=== PATIENT | female | born 1970 | race Caucasian/White ===

== ENCOUNTER 2016-09-29 16:44 | Inpatient (IN) | payer BC, OTHER ==
[~2016-09-29] VITALS: Ht 162.6 cm; Wt 97.6 kg
[~2016-09-29 16:44] MED LIST: ALBU6.7H INH; CELE200C PO; DAPA5TAB; GUAI100S6 PO; MEDR4PAK3 PO; METF-324 PO; MMW SSP; TRAZ50TA4 PO; ZITH250T PO
[2016-09-29 16:49] VITALS: BP 131/86; PULSE 99; RESP 16; TEMP 98.2; O2SAT 95
[2016-09-29] MEDS ORDERED: SODIUM CHLOR 0.9% 1000 ML INJ 1,000 ML IV SCH (17:05)
[2016-09-29] MEDS ORDERED: SODIUM CHLORIDE 0.9% FLUSH 5 ML FLUSH IVF PRN (17:15)
[2016-09-29] MEDS ORDERED: KETOROLAC TROMETHAMINE 30 MG/ML (IVP) VIAL IVP ONE (17:15)
[2016-09-29] MEDS ORDERED: ONDANSETRON HCL 4 MG/2 ML VIAL IVP ONE (17:15)
[2016-09-29] MEDS ORDERED: HYDR-3580 PO (17:18)
[2016-09-29] MEDS ORDERED: LISI-519 PO (17:18)
[2016-09-29] MEDS ORDERED: GING500C PO (17:18)
[2016-09-29] MEDS ORDERED: GLUC500C5 PO (17:18)
[2016-09-29] MEDS ORDERED: FLUT1INH INH (17:18)
[2016-09-29] MEDS ORDERED: DAPA1TAB3 PO (17:18)
[2016-09-29] MEDS ORDERED: CINN500C PO (17:18)
[2016-09-29] MEDS ORDERED: CYCL1TAB29 PO (17:18)
[2016-09-29] MEDS ORDERED: GNP3TAB PO (17:18)
[2016-09-29] MEDS ORDERED: TRAZ150T75 PO (17:18)
[2016-09-29] MEDS ORDERED: MOBI7.5T PO (17:18)
[2016-09-29] MEDS ORDERED: SYMB160A INH (17:18)
[2016-09-29] MEDS ORDERED: ALBU6.7H INH (17:18)
[2016-09-29] MEDS ORDERED: FISH500C PO (17:18)
[2016-09-29] MEDS ORDERED: CELE40TA PO (17:18)
[2016-09-29] MEDS ORDERED: METF1000 PO (17:18)
[2016-09-29] MEDS ORDERED: METO25TA3 PO (17:18)
[2016-09-29 17:29] VITALS: O2SAT 97
[2016-09-29 17:30] VITALS: BP 132/75; PULSE 83; RESP 18; O2SAT 97
--- NOTE | 2016-09-29 17:38 | PD ---
HPI Chief Complaint: GI Complaint Time Seen by Provider: 17:00 Travel History International Travel<30 days: No Contact w/Intl Traveler<30days: No Traveled to known affect area: No History of Present Illness HPI 46-year-old female with history of depression, anxiety, diabetes here with complaint of abdominal pain. Patient states that she has had approximately 2.5 days of upper abdominal pain greatest in the epigastrium and right upper quadrant that radiates around to the back. Associated nausea, vomiting. No hematemesis. Associated diarrhea. No hematochezia. The nausea and vomiting are certainly more prominent than her diarrhea. Patient states that she has a history of pancreatitis, status post cholecystectomy and this feels similar. She's had recurrent pancreatitis even after her cholecystectomy and states that it has been due to "using too much ibuprofen". She denies a history of heavy alcohol abuse. Patient has not had any new changes in home medications. Patient has tried Zofran at home with some improvement of her symptoms. PFSH Past Medical History Asthma: Yes Anxiety: Yes Depression: Yes Heart Rhythm Problems: No Cancer: No Cardiac Catheterization: No Cardiovascular Problems: Yes Diabetes: Yes Patient Takes Glucophage: Yes Diminished Hearing: No Gastrointestinal Disorders: Yes Genitourinary: No Hypertension: Yes Implanted Vascular Access Dvce: No Musculoskeletal: No Neurologic: No Psychiatric: Yes Reproductive: Yes (HYSTERECTOMY) Respiratory: Yes Immunizations Current: Yes Migraines: No Pancreatitis: Yes Thyroid Disease: No Influenza Vaccination: Yes ?: Not : 1 Para: 1 Past Surgical History Abdominal Surgery: Yes (ENDOMETRIAL TISSUE REMOVED 2002) Appendectomy: Yes Section: Yes (1998) Cholecystectomy: Yes Coronary Artery Bypass Graft: No Gynecologic Surgery: Yes (EXPLORATORY LAP 1990, EXPL LAP C CAUTERIZATION 1997 ) Hysterectomy: Yes Pacemaker: No Other Surgery: Yes (EXP LAP, EXP ABD SURGERY) Social History Alcohol Use: Yes (RARELY) Tobacco Use: No Substance Use: No Allergies-Medications (Allergen,Severity, Reaction): Coded Allergies: Morphine (Verified Allergy, Intermediate, HIVES, 09/29/16) Sulfa (Verified Allergy, Intermediate, HIVES, 09/29/16) Pyridium (Verified Adverse Reaction, Intermediate, VOMITING, 09/29/16) Reported Meds & Prescriptions Reported Meds & Active Scripts Active Reported Cinnamon 500 Mg Cap 1,000 Mg PO DAILY Gnp Melatonin (Melatonin) 3 Mg Tab 1 Tab PO DAILY Anabell (Anabell (Zingiber Officinalis)) 500 Mg Cap 1 Cap PO DAILY Glucosamine (Glucosamine Sulfate) 500 Mg Cap 500 Mg PO DAILY Fish Oil (Sheldon-3 Fatty Acids) 500 Mg Cap 1 Cap PO DAILY Mobic (Meloxicam) 7.5 Mg Tab 7.5 Mg PO DAILY Trazodone (Trazodone HCl) 150 Mg Tab 150 Mg PO HS Celexa (Citalopram Hydrobromide) 40 Mg Tab 60 Mg PO DAILY Farxiga (Dapagliflozin) 10 Mg Tab 10 Mg PO DAILY Metformin (Metformin HCl) 1,000 Mg Tab 1,000 Mg PO BIDPC With meals Flexeril (Cyclobenzaprine HCl) 10 Mg Tab 10 Mg PO TID Hydrocodone-Acetaminophen 7.5-325 mg Tab 1 Tab PO DAILY PRN Symbicort Inh (Budesonide/Formoterol Fumarate) 160-4.5 Mcg/Act Aero 1 Puff INH Q12HR Breo Ellipta Inh (Fluticasone/Vilanterol) 100-25 Mcg/Act Inh 1 Puff INH DAILY Use daily at the same time. Proventil Hfa 6.7 GM Inh (Albuterol Sulfate) 90 Mcg/Act Aer 1 Puff INH Q4H PRN Metoprolol Tartrate 25 Mg Tab 25 Mg PO BID Lisinopril 5 Mg Tab 5 Mg PO DAILY Review of Systems Except as stated in HPI: all other systems reviewed are Neg Physical Exam Narrative GENERAL: Well-appearing female in no acute distress SKIN: Warm and dry. HEAD: Normocephalic. EYES: No scleral icterus. No injection or drainage. ENT: Mucous membranes pink and moist. NECK: Supple CARDIOVASCULAR: Regular rate and rhythm. RESPIRATORY: No accessory muscle use. GASTROINTESTINAL: Abdomen soft, right upper quadrant and epigastric abdominal pain without rebound or guarding, no CVA tenderness. Obese. MUSCULOSKELETAL: Normal gait NEUROLOGICAL: Awake and alert. Normal speech. PSYCHIATRIC: Appropriate mood and affect; insight and judgment normal. Data Data Last Documented VS Vital Signs Date Time Temp Pulse Resp B/P Pulse Ox O2 Delivery O2 Flow Rate FiO2 09/29/16 17:30 83 18 132/75 97 Room Air 09/29/16 16:49 98.2 Orders Complete Blood Count With Diff (09/29/16 17:05) Comprehensive Metabolic Panel (09/29/16 17:05) Lipase (09/29/16 17:05) Iv Access Insert/Monitor (09/29/16 17:05) Ecg Monitoring (09/29/16 17:05) Oximetry (09/29/16 17:05) Ondansetron Inj (Zofran Inj) (09/29/16 17:15) Sodium Chlor 0.9% 1000 Ml Inj (Ns 1000 M (09/29/16 17:05) Sodium Chloride 0.9% Flush (Ns Flush) (09/29/16 17:15) Ketorolac Inj (Toradol Inj) (09/29/16 17:15) Labs Laboratory Tests Test 09/29/16 17:25 White Blood Count 8.5 TH/MM3 Red Blood Count 5.17 MIL/MM3 Hemoglobin 15.4 GM/DL Hematocrit 46.0 % Mean Corpuscular Volume 89.1 FL Mean Corpuscular Hemoglobin 29.8 PG Mean Corpuscular Hemoglobin 33.5 % Concent Red Cell Distribution Width 12.2 % Platelet Count 217 TH/MM3 Mean Platelet Volume 8.6 FL Neutrophils (%) (Auto) 58.4 % Lymphocytes (%) (Auto) 32.0 % Monocytes (%) (Auto) 6.8 % Eosinophils (%) (Auto) 2.3 % Basophils (%) (Auto) 0.5 % Neutrophils # (Auto) 5.0 TH/MM3 Lymphocytes # (Auto) 2.7 TH/MM3 Monocytes # (Auto) 0.6 TH/MM3 Eosinophils # (Auto) 0.2 TH/MM3 Basophils # (Auto) 0.0 TH/MM3 CBC Comment DIFF FINAL Differential Comment Sodium Level 139 MEQ/L Potassium Level 3.7 MEQ/L Chloride Level 102 MEQ/L Carbon Dioxide Level 27.5 MEQ/L Anion Gap 10 MEQ/L Blood Urea Nitrogen 13 MG/DL Creatinine 0.76 MG/DL Estimat Glomerular Filtration 83 ML/MIN Rate Random Glucose 188 MG/DL Calcium Level 8.7 MG/DL Total Bilirubin 0.2 MG/DL Aspartate Amino Transf 25 U/L (AST/SGOT) Alanine Aminotransferase 61 U/L (ALT/SGPT) Alkaline Phosphatase 77 U/L Total Protein 7.1 GM/DL Albumin 4.0 GM/DL Lipase 2389 U/L [facility] Medical Decision Making Medical Screen Exam Complete: Yes Emergency Medical Condition: Yes Medical Record Reviewed: Yes Differential Diagnosis 46-year-old female with history of pancreatitis, diabetes status post cholecystectomy here with right upper quadrant, epigastric abdominal pain with nausea vomiting and diarrhea for the last 2.5 days similar previous episodes of pancreatitis. Differential includes GERD, gastritis, pancreatitis, hepatobiliary pathology, gastroenteritis, and less likely bowel obstruction, pyelonephritis. Narrative Course Patient placed on monitor, IV established and blood obtained. Patient given 1 L normal saline bolus, 4 mg Zofran, 30 mg Toradol. CBC, CMP, lipase obtained and notable for lipase of 2389. Patient is still quite uncomfortable with nausea, vomiting. Blood alcohol level, liver panel added onto labs. Patient will be admitted for nothing by mouth, IV fluids. Diagnosis Primary Impression: Pancreatitis Qualified Code: K85.90 - Acute pancreatitis without infection or necrosis, unspecified pancreatitis type Additional Impression: Abdominal pain Qualified Code: R10.10 - Pain of upper abdomen Admitting Information Admitting Physician Requests: Admit Bela Clinton MD Sep 29, 2016 17:38
[2016-09-29 17:40] LABS: BASOPHIL % 0.5 % (0.0-2.0); EOSINOPHIL # 0.2 TH/MM3 (0-0.4); EOSINOPHIL % 2.3 % (0.0-4.0); HEMO FLAGS DIFF FINAL; LYMPHOCYTE # 2.7 TH/MM3 (1.0-4.8); MEAN CELL VOLUME 89.1 FL (80.0-100.0); MEAN CORPUSCULAR HEMOGLOBIN 29.8 PG (27.0-34.0); MEAN CORPUSCULAR HGB CONC 33.5 % (32.0-36.0); MONO % 6.8 % (0.0-8.0); NEUT % 58.4 % (16.0-70.0); PLATELET COUNT 217 TH/MM3 (150-450); RED BLOOD COUNT 5.17 MIL/MM3 (4.00-5.30); RED CELL DISTRIBUTION WIDTH 12.2 % (11.6-17.2); WHITE BLOOD COUNT 8.5 TH/MM3 (4.0-11.0)
[2016-09-29 17:51] LABS: CHLORIDE 102 MEQ/L (98-107); POTASSIUM 3.7 MEQ/L (3.5-5.1); SODIUM (NA) 139 MEQ/L (136-145)
[2016-09-29 17:55] LABS: ANION GAP 10 MEQ/L (5-15); BICARBONATE 27.5 MEQ/L (21.0-32.0); BLOOD UREA NITROGEN 13 MG/DL (7-18)
[2016-09-29 17:58] LABS: ALT (GPT) 61 U/L (10-53); AST (GOT) 25 U/L (15-37); GLOMERULAR FILTRATION RATE 83 ML/MIN (>89)
[2016-09-29 18:00] LABS: TOTAL BILIRUBIN ADULT 0.2 MG/DL (0.2-1.0)
[2016-09-29 18:01] LABS: ALKALINE PHOSPHATASE 77 U/L (45-117)
[2016-09-29] MEDS ORDERED: ACETAMINOPHEN/HYDROcodone 325 MG/5 MG TAB PO ONE (19:00)
[2016-09-29 19:19] LABS: HDL CHOLESTEROL 57.9 MG/DL (40.0-60.0)
[2016-09-29 19:30] VITALS: BP 118/68; PULSE 75; RESP 16; TEMP 99; O2SAT 97
--- NOTE | 2016-09-29 19:46 | HHI.HP ---
HPI Service [facility] Hospitalists Primary Care Physician Buck Patel M.D. Admission Diagnosis pancreatitis Chief Complaint: abd pain Travel History International Travel<30 Days: No Contact w/Intl Traveler <30 Da: No Traveled to Known Affected Are: No History of Present Illness 46-year-old female with history of depression, anxiety, diabetes and htn is here with complaint of abdominal pain. Patient states that she has had approximately 2.5 days of upper abdominal pain greatest in the epigastrium and right upper quadrant that radiates around to the back. +Associated nausea, no vomiting. No hematemesis. + Associated diarrhea. No hematochezia. Nausea is more of a feature than the diarrhea. Patient states that she has a history of pancreatitis, status post cholecystectomy and this feels similar to when she had pancreatitis exacerbation before. She's had recurrent pancreatitis even after her cholecystectomy and states that it has been due to "using too much ibuprofen". She denies a history of heavy alcohol abuse and actually doesn't drink any alcohol at all. Patient has not had any new changes in home medications, but has started eating more fatty foods of late. Patient has tried Zofran at home with some improvement of her symptoms. He is feeling much better now since being provided with IV antibiotics and pain medication. She has had approximately 3 episodes of pancreatitis in the past since 2013. Review of Systems Constitutional: COMPLAINS OF: Change in appetite Eyes: DENIES: Blurred vision, Diplopia, Eye inflammation, Eye pain, Vision loss , Photosensitivity, Double Vision Respiratory: DENIES: Apneas, Cough, Snoring, Wheezing, Hemoptysis, Sputum production, Shortness of breath Cardiovascular: DENIES: Chest pain, Palpitations, Syncope, Dyspnea on Exertion , PND, Lower Extremity Edema, Orthopnea, Claudication Gastrointestinal: COMPLAINS OF: Abdominal pain, Diarrhea, Nausea, DENIES: Black stools, Bloody stools, BRB per rectum, Constipation, GERD, Reflux, Vomiting, Difficulty Swallowing, Anorexia, See HPI Integumentary: COMPLAINS OF: Abnormal pigmentation, Rash Immunologic/allergic: DENIES: Eczema, Urticaria Neurologic: DENIES: Abnormal gait, Headache, Localized weakness, Paresthesias, Seizures, Speech Problems, Tremor, Poor Balance Past Family Social History Past Medical History Asthma Type 2 diabetes Hyperlipidemia Hypertension Gastritis Lumbar degenerative disc disease Obesity Anxiety Depression Past Surgical History Appendectomy section 1998 Laparoscopic cholecystectomy Exploratory laparotomy at age 20 Hysterectomy bilateral salpingo-oophorectomy in 2003 Reported Medications Cinnamon 500 Mg Cap 1,000 Mg PO DAILY Gnp Melatonin (Melatonin) 3 Mg Tab 1 Tab PO DAILY Anabell (Anabell (Zingiber Officinalis)) 500 Mg Cap 1 Cap PO DAILY Glucosamine (Glucosamine Sulfate) 500 Mg Cap 500 Mg PO DAILY Fish Oil (Rocky-3 Fatty Acids) 500 Mg Cap 1 Cap PO DAILY Mobic (Meloxicam) 7.5 Mg Tab 7.5 Mg PO DAILY Trazodone (Trazodone HCl) 150 Mg Tab 150 Mg PO HS Celexa (Citalopram Hydrobromide) 40 Mg Tab 60 Mg PO DAILY Farxiga (Dapagliflozin) 10 Mg Tab 10 Mg PO DAILY Metformin (Metformin HCl) 1,000 Mg Tab 1,000 Mg PO BIDPC With meals Flexeril (Cyclobenzaprine HCl) 10 Mg Tab 10 Mg PO TID Hydrocodone-Acetaminophen 7.5-325 mg Tab 1 Tab PO DAILY PRN Symbicort Inh (Budesonide/Formoterol Fumarate) 160-4.5 Mcg/Act Aero 1 Puff INH Q12HR Proventil Hfa 6.7 GM Inh (Albuterol Sulfate) 90 Mcg/Act Aer 1 Puff INH Q4H PRN Metoprolol Tartrate 25 Mg Tab 25 Mg PO BID Lisinopril 5 Mg Tab 5 Mg PO DAILY Singulair 10mg daily Incruse Elipta 62.5 mcg 1 puff daily Allergies: Coded Allergies: Morphine (Verified Allergy, Intermediate, HIVES, 09/29/16) Sulfa (Verified Allergy, Intermediate, HIVES, 09/29/16) Pyridium (Verified Adverse Reaction, Intermediate, VOMITING, 09/29/16) Family History Asthma and a mother and sister Abdominal aortic aneurysm in her father diabetes Coronary artery disease Hypertension Major depression Social History Denies alcohol, tobacco or illicit drug use 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 She has twin sons age 17. Originally from [place], she has been in the area for 9 years. Physical Exam Vital Signs Vital Signs Date Time Temp Pulse Resp B/P Pulse Ox O2 Delivery O2 Flow Rate FiO2 09/29/16 18:26 18 09/29/16 17:30 83 18 132/75 97 Room Air 09/29/16 17:29 97 Room Air 09/29/16 16:49 98.2 99 16 131/86 95 Physical Exam GENERAL: This is a well-nourished, obese, well-developed patient, in no apparent distress. Alert and oriented. SKIN: Mild erythematous patches on arms and upper chest.. Cool and dry. HEAD: Atraumatic. Normocephalic. No temporal or scalp tenderness. EYES: Pupils equal round and reactive. Extraocular motions intact. No scleral icterus. No injection or drainage. ENT: Nose without bleeding, purulent drainage or septal hematoma. Airway patent. NECK: Trachea midline. No JVD or lymphadenopathy. Supple, nontender, no meningeal signs. CARDIOVASCULAR: Regular rate and rhythm without murmurs, gallops, or rubs. RESPIRATORY: Clear to auscultation. Breath sounds equal bilaterally. No wheezes , rales, or rhonchi. GASTROINTESTINAL: Abdomen soft, nondistended. No hepato-splenomegaly, or palpable masses. No guarding. Mild tenderness to palpation in epigastrium. No rebound. Bowel sounds normal. MUSCULOSKELETAL: Extremities without clubbing, cyanosis, or edema. No joint tenderness, effusion, or edema noted. No calf tenderness. NEUROLOGICAL: Awake and alert. Cranial nerves II through XII intact. Motor and sensory grossly within normal limits. Five out of 5 muscle strength in all muscle groups. Normal speech. Laboratory Laboratory Tests Test 09/29/16 17:25 White Blood Count 8.5 Red Blood Count 5.17 Hemoglobin 15.4 Hematocrit 46.0 Mean Corpuscular Volume 89.1 Mean Corpuscular Hemoglobin 29.8 Mean Corpuscular Hemoglobin 33.5 Concent Red Cell Distribution Width 12.2 Platelet Count 217 Mean Platelet Volume 8.6 Neutrophils (%) (Auto) 58.4 Lymphocytes (%) (Auto) 32.0 Monocytes (%) (Auto) 6.8 Eosinophils (%) (Auto) 2.3 Basophils (%) (Auto) 0.5 Neutrophils # (Auto) 5.0 Lymphocytes # (Auto) 2.7 Monocytes # (Auto) 0.6 Eosinophils # (Auto) 0.2 Basophils # (Auto) 0.0 CBC Comment DIFF FINAL Differential Comment Sodium Level 139 Potassium Level 3.7 Chloride Level 102 Carbon Dioxide Level 27.5 Anion Gap 10 Blood Urea Nitrogen 13 Creatinine 0.76 Estimat Glomerular Filtration 83 Rate Random Glucose 188 Calcium Level 8.7 Total Bilirubin 0.2 Aspartate Amino Transf 25 (AST/SGOT) Alanine Aminotransferase 61 (ALT/SGPT) Alkaline Phosphatase 77 Total Protein 7.1 Albumin 4.0 Triglycerides Level 306 Cholesterol Level 226 LDL Cholesterol 107 HDL Cholesterol 57.9 Cholesterol/HDL Ratio 3.90 Lipase 2389 Ethyl Alcohol Level LESS THAN 3 Result Diagram: 09/29/16 1725 09/29/16 172 Assessment and Plan Problem List: (1) Pancreatitis Status: Acute Plan: seems to be recurrent issue. Will follow clinically. IVF, pain meds. NPO initially, we'll now advanced to clears as she seems clinically much improved. We'll check imaging if symptoms recur. She reports that she's had CT scanning done of her abdomen on several occasions including most recently around March 2016 per her report. (2) DM2 (diabetes mellitus, type 2) Status: Chronic Plan: A1c 7.3 in May 2016. Recheck. SSI. (3) Asthma Status: Chronic Plan: nebs. follow clinically. inhalers as at home. (4) Hypertension Status: Chronic Plan: Well controlled. continue rx (5) Major depression Status: Chronic Plan: continue rx Code Status Full Discussed Condition With Patient and ER physician Physician Certification 2 Midnight Certification Type: Admission for Inpatient Services Order for Inpatient Services The services are ordered in accordance with Medicare regulations or non- Medicare payer requirements, as applicable. In the case of services not specified as inpatient-only, they are appropriately provided as inpatient services in accordance with the 2-midnight benchmark. Estimated LOS (days): 2 days is the estimated time the patient will need to remain in the hospital, assuming treatment plan goals are met and no additional complications. Post-Hospital Plan: Home Problem Qualifiers (1) Pancreatitis: Qualified Code: K85.90 - Acute pancreatitis without infection or necrosis, unspecified pancreatitis type (2) Hypertension: Qualified Code: I10 - Essential hypertension (3) Major depression: Van Kirkpatrick PhD MD Sep 29, 2016 19:46
[2016-09-29] MEDS ORDERED: SODIUM CHLORIDE 0.9% FLUSH 5 ML FLUSH IV PRN (21:15)
[2016-09-29] MEDS: NS + KCL 20 MEQ INJ 1,000 ML IV SCH (21:57)
[2016-09-29 22:00] VITALS: BP 133/67; PULSE 77; RESP 18; TEMP 97.7; O2SAT 97
[2016-09-29] MEDS ORDERED: METOPROLOL TARTRATE 25 MG TAB PO SCH (22:30)
[2016-09-29] MEDS ORDERED: CITALOPRAM HYDROBROMIDE 20 MG TAB PO SCH (22:30)
[2016-09-29] MEDS ORDERED: traZODone HCL 100 MG TAB PO SCH (22:30)
[2016-09-29] MEDS ORDERED: PILL SPLITTER OTHER PRN (22:45)
[2016-09-29 23:20] VITALS: BP 117/59; PULSE 76; RESP 18; O2SAT 96
[2016-09-30] VITALS (9 sets, daily range): BP systolic 113–140; BP diastolic 52–87; PULSE 69–83; RESP 16–18; TEMP 96.9–98.2; O2SAT 96–99
[2016-09-30] MEDS: INSULIN ASPART SUPPLEMENTAL SCALE SQ SCH ×4 (06:34→21:00)
[2016-09-30 06:47] LABS: CHLORIDE 109 MEQ/L (98-107); POTASSIUM 4.5 MEQ/L (3.5-5.1); SODIUM (NA) 142 MEQ/L (136-145)
[2016-09-30 06:51] LABS: ANION GAP 7 MEQ/L (5-15); BICARBONATE 25.6 MEQ/L (21.0-32.0); BLOOD UREA NITROGEN 13 MG/DL (7-18)
[2016-09-30 06:58] LABS: ALKALINE PHOSPHATASE 51 U/L (45-117); ALT (GPT) 72 U/L (10-53); AST (GOT) 44 U/L (15-37); GLOMERULAR FILTRATION RATE 107 ML/MIN (>89); TOTAL BILIRUBIN ADULT 0.5 MG/DL (0.2-1.0)
--- NOTE | 2016-09-30 07:00 | HHI.PR ---
Subjective Remarks Patient felt relatively well overnight and started having pain again in the right upper quadrant and epigastric area about 1 hour ago. She prefers to avoid opiates if possible given a history of opiate addiction. She uses [place] at home very sparingly and has a pain contract with her outside primary care physician. No nausea or vomiting overnight. She has never had an MRCP and this is her fourth episode of pancreatitis in the last 3-1/2 years. Objective Vitals Vital Signs Date Time Temp Pulse Resp B/P Pulse Ox O2 Delivery O2 Flow Rate FiO2 09/30/16 03:30 98.0 76 18 113/52 97 Room Air 09/30/16 01:50 96 21 09/29/16 23:20 76 18 117/59 96 Room Air 09/29/16 22:00 97.7 77 18 133/67 97 Room Air 09/29/16 19:30 99.0 75 16 118/68 97 Room Air 09/29/16 19:30 16 09/29/16 18:26 18 09/29/16 17:30 83 18 132/75 97 Room Air 09/29/16 17:29 97 Room Air 09/29/16 16:49 98.2 99 16 131/86 95 09/29/16 09/29/16 09/30/16 15:00 23:00 07:00 Intake Total 250 ml Balance 250 ml Intake Oral 250 ml # Voids 1 GENERAL: Standing by the side of the bed in mild distress regarding right upper quadrant pain. Alert and oriented. Cooperative with exam. SKIN: Warm and dry. Minimal erythematous patches on lateral arms, improved from previous exam. HEAD: Normocephalic. EYES: No scleral icterus. No injection or drainage. NECK: Supple, trachea midline. No JVD or lymphadenopathy. CARDIOVASCULAR: Regular rate and rhythm without murmurs, gallops, or rubs. RESPIRATORY: Breath sounds equal bilaterally. No accessory muscle use. GASTROINTESTINAL: Abdomen soft, nondistended. Moderate tenderness in right upper quadrant with voluntary guarding. No rebound. Bowel sounds normal. MUSCULOSKELETAL: No cyanosis, or edema. BACK: Nontender without obvious deformity. No CVA tenderness. Result Diagram: 09/29/16 1725 09/30/16 0630 Urinary Catheter: No Vascular Central Line Catheter: No A/P Problem List: (1) Pancreatitis Status: Acute Plan: seems to be recurrent issue. Will follow clinically. IVF, pain meds. Recurrence of pain this morning. We'll check MRCP and have GI see the patient since the recurrent issue. Patient prefers not opiate medications for pain management if possible. (2) DM2 (diabetes mellitus, type 2) Status: Chronic Plan: A1c 7.3 in May 2016. Recheck. SSI. (3) Asthma Status: Chronic Plan: nebs. follow clinically. inhalers as at home. (4) Hypertension Status: Chronic Plan: Well controlled. continue rx (5) Major depression Status: Chronic Plan: continue rx Discharge Planning Hopefully discharge in next 1-2 days. Problem Qualifiers (1) Pancreatitis: Qualified Code: K85.90 - Acute pancreatitis without infection or necrosis, unspecified pancreatitis type (2) Hypertension: Qualified Code: I10 - Essential hypertension (3) Major depression: Van Kirkpatrick PhD Sep 30, 2016 07:00
[2016-09-30 07:32] LABS: BETA HCG QUANT 3 MIU/ML (0-5)
[2016-09-30] MEDS: KETOROLAC TROMETHAMINE 30 MG/ML (IVP) VIAL IV PUSH PRN (07:44)
[2016-09-30] MEDS: ONDANSETRON HCL 4 MG/2 ML VIAL IV PRN (07:44)
[2016-09-30] MEDS: NS + KCL 20 MEQ INJ 1,000 ML IV SCH (07:44)
[2016-09-30] MEDS ORDERED: MELATONIN 5 MG TAB PO SCH (09:00)
[2016-09-30] MEDS: SODIUM CHLORIDE 0.9% FLUSH 5 ML FLUSH IV SCH ×2 (09:00→20:05)
[2016-09-30] MEDS ORDERED: CITALOPRAM HYDROBROMIDE 40 MG TAB PO SCH (09:00)
[2016-09-30] MEDS: METOPROLOL TARTRATE 25 MG TAB PO SCH ×2 (09:02→21:13)
[2016-09-30] MEDS: BUDESONIDE-FORMOTEROL 160/4.5 MCG INHALER INH SCH ×2 (09:05→21:13)
[2016-09-30] MEDS: ACETAMINOPHEN/HYDROcodone 325 MG/5 MG TAB PO PRN ×2 (09:29→17:07)
[2016-09-30] MEDS ORDERED: VYVA30CA5 PO (09:33)
[2016-09-30] MEDS ORDERED: RESP: ALBUTEROL 2.5 MG/IPRATROPIUM 0.5 MG NEB (PRN) NEB (10:00)
[2016-09-30] MEDS ORDERED: LISDEXAMFETAMINE DIMESYLATE 30 MG CAP PO SCH (11:00)
[2016-09-30 11:30] LABS: HEMOGLOBIN A1a 1.1 %; HEMOGLOBIN A1b 1.2 %; HEMOGLOBIN Ao 82.5 %; HEMOGLOBIN F 1.8 %; HEMOGLOBIN LA1C 2.3 %; HEMOGLOBIN P3 3.9 %
[2016-09-30] MEDS: CYCLOBENZAPRINE HCL 10 MG TAB PO SCH ×2 (12:25→17:06)
--- NOTE | 2016-09-30 16:26 | RADHPO ---
EXAM DATE/TIME: 09/30/2016 14:40 [facility] COMPARISON: No previous studies available for comparison. INDICATIONS : Abdominal pain. MEDICAL HISTORY : Hypertension. Diabetes mellitus type 2. SURGICAL HISTORY : Cholecystectomy. Hysterectomy. ENCOUNTER: Initial ACUITY: 2 day PAIN SCORE: 4/10 LOCATION: upper quadrant Abdomen TECHNIQUE: Multiplanar, multisequence magnetic resonance imaging of the abdomen was performed. High-resolution 3D dataset was utilized to reconstruct maximum-intensity projection (MIP) images. FINDINGS: INTRAHEPATIC BILE DUCTS: Within normal limits. No significant anatomical variant is present. EXTRAHEPATIC BILE DUCTS: The common bile duct measures 4 mm. No stone or filling defect is identified. GALLBLADDER: No stones, wall thickening, or pericholecystic fluid. LIVER: Normal size and signal intensity. No concerning liver lesion is identified on this non-contrast exam. PANCREAS: The main pancreatic duct is normal in size. There is no significant anatomical variant. Signal inte nsity is within normal limits. No mass is visualized on this non-contrast exam. OTHER: The remaining visualized structures demonstrate no acute abnormality on this non-contrast exam. There is loss of signal on axial opposed phase imaging. CONCLUSION: 1. Unremarkable MRCP. 2. No intra-or extrahepatic biliary ductal dilatation. 3. Mild fatty infiltration of the liver. Gary Bonilla MD on September 30, 2016 at 16:21 Board Certified Radiologist. This report was verified electronically.
[2016-09-30] MEDS: MELATONIN 5 MG TAB PO SCH (21:13)
[2016-09-30] MEDS: traZODone HCL 50 MG TAB PO SCH (21:13)
[2016-09-30] MEDS: CITALOPRAM HYDROBROMIDE 40 MG TAB PO SCH (21:14)
--- NOTE | 2016-10-01 05:54 | HHI.PR ---
Subjective Remarks Feeling somewhat better today. Slept well last night. Less nausea and less pain. Wants to try advancing diet. Objective Vitals Vital Signs Date Time Temp Pulse Resp B/P Pulse Ox O2 Delivery O2 Flow Rate FiO2 09/30/16 20:45 97 21 09/30/16 20:00 96.9 69 18 128/84 96 09/30/16 16:42 96 21 09/30/16 16:00 98.1 70 18 121/85 99 09/30/16 12:00 98.2 69 18 132/81 96 09/30/16 08:50 97.9 83 18 140/87 96 09/30/16 07:15 75 16 119/76 97 Room Air 09/30/16 09/30/16 10/01/16 15:00 23:00 07:00 Intake Total 1000 ml 800 ml Balance 1000 ml 800 ml Intake Oral 0 ml IV Total 1000 ml 800 ml # Voids 2 GENERAL: Sleeping but arouses to voice. Appears comfortable in no apparent distress. Alert and oriented. Cooperative with exam. SKIN: Warm and dry. Minimal erythematous patches on lateral arms which is stable with previous exam.. HEAD: Normocephalic. EYES: No scleral icterus. No injection or drainage. NECK: Supple, trachea midline. No JVD or lymphadenopathy. CARDIOVASCULAR: Regular rate and rhythm without murmurs, gallops, or rubs. RESPIRATORY: Breath sounds equal bilaterally. No accessory muscle use. GASTROINTESTINAL: Abdomen soft, nondistended. Mild tenderness in right upper quadrant. No guarding. No rebound. Bowel sounds normal. MUSCULOSKELETAL: No cyanosis, or edema. BACK: Nontender without obvious deformity. No CVA tenderness. Result Diagram: 09/29/16 1725 09/30/16 0630 Urinary Catheter: No Vascular Central Line Catheter: No A/P Problem List: (1) Pancreatitis Status: Acute Plan: seems to be recurrent issue. Will follow clinically. IVF, pain meds. MRCP negative. GI is on the case. Multiple labs pending. Medically improved. We'll advance diet. If she tolerates bland diet, plan discharge home later today. (2) DM2 (diabetes mellitus, type 2) Status: Chronic Plan: A1c 7.3 in May 2016, now 6.7. SSI and hospital. Resume outpatient meds after discharge. (3) Asthma Status: Chronic Plan: nebs. follow clinically. inhalers as at home. (4) Hypertension Status: Chronic Plan: Well controlled. continue rx (5) Major depression Status: Chronic Plan: continue rx Discharge Planning Hopefully discharge later today depending on her capacity to tolerate advanced diet. Problem Qualifiers (1) Pancreatitis: Qualified Code: K85.90 - Acute pancreatitis without infection or necrosis, unspecified pancreatitis type (2) Hypertension: Qualified Code: I10 - Essential hypertension (3) Major depression: Van Kirkpatrick PhD MD Oct 01, 2016 05:54
[2016-10-01] MEDS ORDERED: MOBI7.5T PO (05:59)
[2016-10-01] MEDS ORDERED: METF1000 PO (05:59)
[2016-10-01] MEDS ORDERED: PANT40TA3 PO (06:00)
--- NOTE | 2016-10-01 06:02 | HHI.DS ---
Discharge Summary Admission Date Sep 29, 2016 at 18:18 Discharge Date: Oct 03, 2016 Admitting Diagnosis pancreatitis (1) Pancreatitis Diagnosis: Principal (2) DM2 (diabetes mellitus, type 2) Diagnosis: Secondary (3) Asthma Diagnosis: Secondary (4) Hypertension Diagnosis: Secondary (5) Major depression Diagnosis: Secondary [facility], Dr. MCQUEEN Brief History 46-year-old female with history of depression, anxiety, diabetes and htn is here with complaint of abdominal pain. Patient states that she has had approximately 2.5 days of upper abdominal pain greatest in the epigastrium and right upper quadrant that radiates around to the back. +Associated nausea, no vomiting. No hematemesis. + Associated diarrhea. No hematochezia. Nausea is more of a feature than the diarrhea. Patient states that she has a history of pancreatitis, status post cholecystectomy and this feels similar to when she had pancreatitis exacerbation before. She's had recurrent pancreatitis even after her cholecystectomy and states that it has been due to "using too much ibuprofen". She denies a history of heavy alcohol abuse and actually doesn't drink any alcohol at all. Patient has not had any new changes in home medications, but has started eating more fatty foods of late. Patient has tried Zofran at home with some improvement of her symptoms. He is feeling much better now since being provided with IV antibiotics and pain medication. She has had approximately 3 episodes of pancreatitis in the past since 2012. CBC/BMP: 09/29/16 1725 09/30/16 0630 Significant Findings Laboratory Tests Test 09/29/16 09/30/16 17:25 06:30 Hemoglobin 15.4 GM/DL (11.6-15.3) Estimat Glomerular Filtration 83 ML/MIN (>89) Rate Random Glucose 188 MG/DL 156 MG/DL (74-106) (74-106) Alanine Aminotransferase 61 U/L (10-53) 72 U/L (10-53) (ALT/SGPT) Triglycerides Level 306 MG/DL (42-150) Cholesterol Level 226 MG/DL (120-200) LDL Cholesterol 107 MG/DL (0-99) Lipase 2389 U/L 1424 U/L (73-393) (73-393) Hemoglobin A1c 6.7 % (4.3-6.0) Chloride Level 109 MEQ/L (98-107) Calcium Level 8.1 MG/DL (8.5-10.1) Aspartate Amino Transf 44 U/L (15-37) (AST/SGOT) Total Protein 5.9 GM/DL (6.4-8.2) Albumin 3.3 GM/DL (3.4-5.0) Hospital Course Patient presented with epigastric and right upper quadrant pain. Her lipase was elevated and she was determined to have pancreatitis which is a recurrent problem for her. She was given IV fluids and pain medications. She improved somewhat but had a recurrence of her pain on hospital day #2. She was evaluated by gastroenterology. MRCP was negative. Multiple labs were ordered in attempts to determine the etiology of her recurrent pancreatitis. Many of those labs are still pending at time of d/c. Pt had recurrence of abd pain after eating. Pancreatic enzymes were added due to chronicity and recurrence of pancreatitis. CT and HIDA negative on day of d/c. Patient clinically improved and tolerated oral intake after addition of pancreatic enzymes. Pt Condition on Discharge: Stable Discharge Disposition: Discharge Home Discharge Instructions DIET: Follow Instructions for: Diabetic Diet (low fat, bland initially), Gluten Free Diet Speech Therapy-Diet Recommends: Regular Activities you can perform: Regular-No Restrictions Follow up Referrals: Gastroenterology PCP Follow-up New Orders: COMP MET PROF (CMP) - 2-3 Days LIPASE - 2-3 Days New Medications: Hydrocodone-Acetaminophen (Hydrocodone-Acetaminophen) 5-325 mg Tab 1 TAB PO Q8HR PRN breakthrough pain #15 Ref 0 TAB Pantoprazole (Pantoprazole) 40 Mg Tab 40 MG PO DAILY Reflux #30 Ref 0 TAB Dicyclomine (Bentyl) 10 Mg Cap 10 MG PO TID PRN SPASM #30 CAP Pancrelipase (Creon) 24,000-76,000-120,000 Units Cap 2 CAP PO TID pancreatitis #180 CAP Continued Medications: Albuterol 6.7 GM Inh (Proventil Hfa 6.7 GM Inh) 90 Mcg/Act Aer 1 PUFF INH Q4H PRN SHORTNESS OF BREATH #1 Ref 0 INHALER Budesonide-Formoterol Inh (Symbicort Inh) 160-4.5 Mcg/Act Aero 1 PUFF INH Q12HR #1 Ref 0 INHALER Cinnamon (Cinnamon) 500 Mg Cap 1000 MG PO DAILY #1 BOTTLE Citalopram (Celexa) 40 Mg Tab 60 MG PO DAILY Control Depression #30 Ref 0 TAB Cyclobenzaprine (Flexeril) 10 Mg Tab 10 MG PO TID Muscle Spasm #90 Ref 0 TAB Dapagliflozin (Farxiga) 10 Mg Tab 10 MG PO DAILY Blood Sugar Management #30 Ref 0 TAB Fluticasone-Vilanterol Inh (Breo Ellipta Inh) 100-25 Mcg/Act Inh 1 PUFF INH DAILY Use daily at the same time. #1 Ref 0 INHALER Anabell (Zingiber Officinalis) (Anabell) 500 Mg Cap 1 CAP PO DAILY Glucosamine (Glucosamine) 500 Mg Cap 500 MG PO DAILY Herbal Supplements Ref 0 CAP Hydrocodone-Acetaminophen (Hydrocodone-Acetaminophen) 7.5-325 mg Tab 1 TAB PO DAILY PRN PAIN Ref 0 TAB Lisdexamfetamine (Vyvanse) 30 Mg Cap 30 MG PO DAILY #30 Ref 0 CAP Lisinopril (Lisinopril) 5 Mg Tab 5 MG PO DAILY Blood Pressure Management #30 Ref 0 TAB Melatonin (Gnp Melatonin) 3 Mg Tab 1 TAB PO DAILY Meloxicam (Mobic) 7.5 Mg Tab 7.5 MG PO DAILY Pain #31 Ref 0 TAB (This prescription has been renewed) Metformin (Metformin) 1,000 Mg Tab 1000 MG PO BIDPC With meals Blood Sugar Management #60 Ref 0 TAB (This prescription has been renewed) Metoprolol Tartrate (Metoprolol Tartrate) 25 Mg Tab 25 MG PO BID #60 Ref 0 TAB Raymond-3 Fatty Acids (Fish Oil) 500 Mg Cap 1 CAP PO DAILY Trazodone (Trazodone) 150 Mg Tab 150 MG PO HS Control Depression #30 Ref 0 TAB Van Kirkpatrick PhD Oct 01, 2016 06:02
[2016-10-01] MEDS: INSULIN ASPART SUPPLEMENTAL SCALE SQ SCH ×4 (06:05→21:00)
[2016-10-01] MEDS: ACETAMINOPHEN/HYDROcodone 325 MG/5 MG TAB PO PRN ×3 (06:21→21:28)
[2016-10-01] MEDS: ONDANSETRON HCL 4 MG/2 ML VIAL IV PRN ×2 (06:22→12:38)
[2016-10-01 06:40] LABS: CHLORIDE 109 MEQ/L (98-107); POTASSIUM 4.1 MEQ/L (3.5-5.1); SODIUM (NA) 144 MEQ/L (136-145)
[2016-10-01 06:45] LABS: ANION GAP 8 MEQ/L (5-15); BICARBONATE 27.1 MEQ/L (21.0-32.0); BLOOD UREA NITROGEN 8 MG/DL (7-18)
[2016-10-01 06:48] LABS: ALT (GPT) 78 U/L (10-53); AST (GOT) 40 U/L (15-37); GLOMERULAR FILTRATION RATE 120 ML/MIN (>89)
[2016-10-01 06:50] LABS: TOTAL BILIRUBIN ADULT 0.4 MG/DL (0.2-1.0)
[2016-10-01 06:51] LABS: ALKALINE PHOSPHATASE 46 U/L (45-117)
[2016-10-01 08:00] VITALS: BP 142/85; PULSE 77; RESP 18; TEMP 98.8; O2SAT 96
[2016-10-01] MEDS: METOPROLOL TARTRATE 25 MG TAB PO SCH ×2 (08:48→21:25)
[2016-10-01] MEDS: BUDESONIDE-FORMOTEROL 160/4.5 MCG INHALER INH SCH ×2 (08:49→21:25)
[2016-10-01] MEDS: CYCLOBENZAPRINE HCL 10 MG TAB PO SCH ×3 (08:49→17:23)
--- NOTE | 2016-10-01 08:50 | MB ---
cc: XOCHITL MCQUEEN M.D. DATE OF CONSULTATION 09/30/[address] Kirkpatrick REASON FOR CONSULTATION Recurrent pancreatitis. HISTORY OF PRESENT ILLNESS Ms. Desai is a very pleasant 46-year-old lady admitted to the hospital with recurrent pancreatitis. The patient had abdominal pain, diarrhea, nausea but no vomiting. The pain was in epigastrium radiating to the back. The patient had similar episodes in the past. First one was in 2013- had one recurrence afterwards. She had similar episode. She had her gallbladder removed in 2013. She denies any alcohol intake or any new medications. She stated she does use paleo diet /low fat but recently she had some butter and chicken skin that may have contained more fat than normal. She was evaluated in the past by Dr. Sheldon for what appeared to be elevated liver enzymes. She was found to have elevation of the smooth muscle antibody, was recommended a liver biopsy but that was never done. During her cholecystectomy, no liver biopsy was performed. She is also currently seen by Dr. Quintero for skin rash and joint pains also dating back in 2012. She stated all the testing was negative so far. She was also seen by dermatology for the skin rash - the idea of possible skin biopsy was entertained but not done yet. She is trying to lose weight and she tried a new supplement that she started to a few weeks ago _glucomannan. PAST MEDICAL HISTORY 1. Asthma 2. Obesity 3. Type 2 diabetes, 4. Hyperlipidemia, 5. Hypertension. 6. Gastritis 7. Lumbar degenerative disease 8. Anxiety depression. PAST SURGICAL HISTORY 1. , 2. Appendectomy, 3. Cholecystectomy, 4. Exploratory laparotomy at age 20, 5. Hysterectomy. MEDICATIONS 1. Cinnamon 2. Melatonin 3. Anabell 4. Glucosamine 5. Fish oil 6. Mobic. 7. Trazodone 8. Celexa 9. Farxiga 10. Metformin. 11. Flexeril. 12. Hydrocodone. 13. Symbicort. 14. Proventil. 15. Metoprolol 16. Lisinopril 17. Singulair 18. Alimta ALLERGIES MORPHINE SULFA PYRIDIUM f FAMILY HISTORY Asthma, diabetes, coronary artery disease, hypertension. SOCIAL HISTORY Denies any smoking, drinking or drug use. 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 REVIEW OF SYSTEMS She denies any fever or chills, weight loss or weight gain. ENT: No alteration in baseline hearing or visual acuity PULMONARY: Denies any chest pain, shortness of breath. GASTROINTESTINAL: As above. GENITOURINARY:: Denies dysuria, hematuria. HEMATOLOGIC: No history of anemia or bleeding disorder. SKIN: No alteration in baseline skin lesion. NEUROLOGIC: No history of TIA or CVA kind of symptoms. PHYSICAL EXAMINATION GENERAL: On clinical exam, she is sitting comfortably in bed in no acute distress. VITAL SIGNS: Temperature is 98.1, pulse 70, respiration 18, blood pressure 121/85, pulse ox 99. HEENT: Pupils equal, round, reactive to light and accommodation. NECK: No JVD. No lymphadenopathy. CHEST: Clear to the auscultation and palpation. CARDIOVASCULAR: S1, S2. No murmur. ABDOMEN: Soft, obese. Bowel sounds are present. CHIEF LIBRARIAN CIRCULATION DEPARTMENT: Awake, alert, oriented x3. No focal signs identified. SKIN: She has a rash on her chest, arms. She does have a cushingoid appearance. White count is 8.5, hemoglobin 15.4, platelets 217. PT/INR normal. Her AST is 45, ALT 72, total protein 5.9, 3.3, triglycerides 306, cholesterol 226. Her lipase was 389, currently 1424. The patient had an MRCP which was suggestive of fatty liver otherwise negative. IMAGING STUDIES CT abdomen and pelvis was suggestive of normal CT, no etiology for the patient's clinical symptoms found, some significant fecal material throughout the colon. IMPRESSION Recurrent pancreatitis, unclear etiology. Does suspect medication-induced versus biliary sludge, less likely autoimmune process but needs to be excluded. History of peptic ulcer disease secondary to NSAIDS. Elevation of the liver enzymes most likely fatty liver. History of elevation of the smooth muscle antibody. RECOMMENDATIONS Advance diet as tolerated. EGD with endoscopic ultrasound as an outpatient. We are going to send also hepatitis profile, antimitochondrial antibody, celiac panel, iron ferritin , ceruloplasmin, alpha one antitrypsin, food allergies, liver fibrosis, IgG 4:smooth muscle antibody and KATALINA were sent. Weight loss. Avoid fatty foods. If discharged, followup in the office for further evaluation and treatment. I would like to thank Dr. Kirkpatrick for referring her to our office for consultation. Further recommendation will depend on the patient's clinical status and the above results. MD TEMO Ritter/ /6:17 PM /8:34 AM [facility] CENTERAnisha
[2016-10-01] MEDS: SODIUM CHLORIDE 0.9% FLUSH 5 ML FLUSH IV SCH ×2 (08:51→21:29)
[2016-10-01] MEDS: LISDEXAMFETAMINE 50 MG PO SCH (09:52)
[2016-10-01 10:02] LABS: FERRITIN 94 NG/ML (8-252); TRANSFERRIN IRON PROFILE 252 MG/DL (200-360)
[2016-10-01 11:10] LABS: IMMUNOGLOBULIN G 621 MG/DL (670-1640)
[2016-10-01 12:00] VITALS: BP 157/95; PULSE 77; RESP 18; TEMP 97.4; O2SAT 97
[2016-10-01] MEDS: KETOROLAC TROMETHAMINE 30 MG/ML (IVP) VIAL IV PUSH PRN (13:40)
[2016-10-01 16:00] VITALS: BP 144/88; PULSE 78; RESP 18; TEMP 97.7; O2SAT 97
[2016-10-01 20:00] VITALS: BP 129/85; PULSE 71; RESP 20; TEMP 98.2; O2SAT 95
[2016-10-01] MEDS: traZODone HCL 50 MG TAB PO SCH (21:25)
[2016-10-01] MEDS: MELATONIN 5 MG TAB PO SCH (21:26)
[2016-10-01] MEDS: CITALOPRAM HYDROBROMIDE 40 MG TAB PO SCH (21:26)
[2016-10-02] MEDS: INSULIN ASPART SUPPLEMENTAL SCALE SQ SCH ×4 (06:11→21:00)
[2016-10-02 06:54] LABS: CHLORIDE 105 MEQ/L (98-107); POTASSIUM 3.7 MEQ/L (3.5-5.1); SODIUM (NA) 145 MEQ/L (136-145)
[2016-10-02 07:03] LABS: ANION GAP 10 MEQ/L (5-15); BICARBONATE 30.1 MEQ/L (21.0-32.0); BLOOD UREA NITROGEN 6 MG/DL (7-18)
[2016-10-02 07:05] LABS: ALT (GPT) 134 U/L (10-53); AST (GOT) 70 U/L (15-37); GLOMERULAR FILTRATION RATE 111 ML/MIN (>89)
[2016-10-02 07:07] LABS: TOTAL BILIRUBIN ADULT 0.4 MG/DL (0.2-1.0)
[2016-10-02 07:08] LABS: ALKALINE PHOSPHATASE 71 U/L (45-117)
[2016-10-02] MEDS: LISDEXAMFETAMINE 50 MG PO SCH (07:44)
[2016-10-02] MEDS: METOPROLOL TARTRATE 25 MG TAB PO SCH ×2 (07:45→21:00)
[2016-10-02] MEDS: BUDESONIDE-FORMOTEROL 160/4.5 MCG INHALER INH SCH ×2 (07:45→21:00)
[2016-10-02] MEDS: CYCLOBENZAPRINE HCL 10 MG TAB PO SCH ×3 (07:45→17:51)
--- NOTE | 2016-10-02 07:46 | HHI.PR ---
Subjective Remarks Feeling much better today. Had recurrence of pain yesterday when she ate the advanced diet. Slept well overnight. No nausea. Objective Vitals Vital Signs Date Time Temp Pulse Resp B/P Pulse Ox O2 Delivery O2 Flow Rate FiO2 10/01/16 22:43 18 10/01/16 20:00 98.2 71 20 129/85 95 10/01/16 16:00 97.7 78 18 144/88 97 10/01/16 12:00 97.4 77 18 157/95 97 10/01/16 08:00 98.8 77 18 142/85 96 10/01/16 10/01/16 10/02/16 15:00 23:00 07:00 Intake Total 1440 ml 480 ml Balance 1440 ml 480 ml Intake Oral 1440 ml 480 ml # Voids 6 3 # Bowel Movements 0 0 GENERAL: Appears comfortable in no apparent distress. Alert and oriented. Cooperative with exam. SKIN: Warm and dry. HEAD: Normocephalic. EYES: No scleral icterus. No injection or drainage. NECK: Supple, trachea midline. No JVD or lymphadenopathy. CARDIOVASCULAR: Regular rate and rhythm without murmurs, gallops, or rubs. RESPIRATORY: Breath sounds equal bilaterally. No accessory muscle use. GASTROINTESTINAL: Abdomen soft, nondistended. No tenderness to palpation on today's exam. No guarding. No rebound. Bowel sounds normal. MUSCULOSKELETAL: No cyanosis, or edema. BACK: Nontender without obvious deformity. No CVA tenderness. Result Diagram: 09/29/16 1725 10/02/16 0530 Urinary Catheter: No Vascular Central Line Catheter: No A/P Problem List: (1) Pancreatitis Status: Acute Plan: seems to be recurrent issue. Clinically much improved this morning but transaminases and lipase are elevated again. MRCP negative. GI is on the case. Multiple labs pending guarding possible etiology of her recurrent pancreatitis. We'll try diet again this morning. If she tolerates well hopefully discharge home later today with close outpatient follow-up. (2) DM2 (diabetes mellitus, type 2) Status: Chronic Plan: A1c 7.3 in May 2016, now 6.7. SSI in hospital. Resume outpatient meds after discharge. (3) Asthma Status: Chronic Plan: nebs. follow clinically. inhalers as at home. (4) Hypertension Status: Chronic Plan: Well controlled. continue rx (5) Major depression Status: Chronic Plan: continue rx Discharge Planning Hopefully discharge later today depending on her capacity to tolerate advanced diet. Will need close follow-up as outpatient with labs and primary care. Problem Qualifiers (1) Pancreatitis: Qualified Code: K85.90 - Acute pancreatitis without infection or necrosis, unspecified pancreatitis type (2) Hypertension: Qualified Code: I10 - Essential hypertension (3) Major depression: Van Kirkpatrick PhD Oct 02, 2016 07:46
[2016-10-02] MEDS ORDERED: HYDR-3516 PO (07:48)
[2016-10-02 08:00] VITALS: BP 121/80; PULSE 80; RESP 18; TEMP 98.2; O2SAT 95
[2016-10-02 12:00] VITALS: BP 131/82; PULSE 66; RESP 18; TEMP 97.5; O2SAT 97
[2016-10-02] MEDS: ACETAMINOPHEN/HYDROcodone 325 MG/5 MG TAB PO PRN ×2 (12:57→20:18)
[2016-10-02] MEDS: SODIUM CHLORIDE 0.9% FLUSH 5 ML FLUSH IV SCH ×2 (12:58→21:00)
[2016-10-02] MEDS ORDERED: SIMETHICONE 80 MG CHEWABLE TAB PO PRN (15:00)
[2016-10-02] MEDS ORDERED: DICYCLOMINE HCL 10 MG CAP PO PRN (15:00)
--- NOTE | 2016-10-02 17:22 | HHI.GIFU ---
GI Follow-up Note Consult Follow-up Subjective: Patient laying in bed comfortably, today had multiple loose stools , some fat seen in toilet bowl, abdominal pain, crampy like after eating .No nausea, vomiting , tolerated diet relatively well.Lipase went up slightly .she states she gets episodes like this at home on/off Objective: PHYSICAL EXAMINATION: Vitals signs stable No fever Vital Signs Date Time Temp Pulse Resp B/P Pulse Ox O2 Delivery O2 Flow Rate FiO2 10/02/16 13:57 20 10/02/16 12:00 97.5 66 18 131/82 97 HEENT: Pupils round and reactive to light; normocephalic; atraumatic; no jaundice. Throat is clear. NECK: Neck is supple, no JVD, no lymphadenopathy. CHEST: Chest is clear to auscultation and percussion. CARDIAC: Regular rate and rhythm with no murmur gallop or rubs. ABDOMEN: Soft, nondistended, nontender; no hepatosplenomegaly; bowel sounds are present in all four quadrants,obese EXTREMITIES: No clubbing, cyanosis, or edema. SKIN: Normal; rash; no jaundice. RATE REVIEWER: No focal deficits; alert and oriented times three. Available Data (labs, X- Rays, Procedues) : Laboratory Tests Test 09/30/16 10/01/16 10/02/16 19:30 05:40 05:30 Iron Level 76 MCG/DL Total Iron Binding Capacity 353 MCG/DL Percent Iron Saturation 21.5 % Ferritin 94 NG/ML Random Cortisol 2.1 MCG/DL Immunoglobulin G Total 621 MG/DL Hepatitis A IgM Antibody NEGATIVE Hepatitis B Surface Antigen NEGATIVE Hepatitis B Core IgM Antibody NEGATIVE Hepatitis C Antibody NEGATIVE [id number] 111 mg/dL Sodium Level 144 MEQ/L 145 MEQ/L Potassium Level 4.1 MEQ/L 3.7 MEQ/L Chloride Level 109 MEQ/L 105 MEQ/L Carbon Dioxide Level 27.1 MEQ/L 30.1 MEQ/L Anion Gap 8 MEQ/L 10 MEQ/L Blood Urea Nitrogen 8 MG/DL 6 MG/DL Creatinine 0.55 MG/DL 0.59 MG/DL Estimat Glomerular Filtration 120 ML/MIN 111 ML/MIN Rate Random Glucose 144 MG/DL 147 MG/DL Calcium Level 8.4 MG/DL 8.8 MG/DL Total Bilirubin 0.4 MG/DL 0.4 MG/DL Aspartate Amino Transf 40 U/L 70 U/L (AST/SGOT) Alanine Aminotransferase 78 U/L 134 U/L (ALT/SGPT) Alkaline Phosphatase 46 U/L 71 U/L Total Protein 5.9 GM/DL 6.6 GM/DL Albumin 3.2 GM/DL 3.7 GM/DL Lipase 692 U/L 1766 U/L ASSESSMENT/PLAN: recurrent pancreatis unclear etiology possible biliary, medication? Possible pancreatic insufficiency based on stool description elevated lfts, most likely secondary fatty liver Recommendations hida scan to evaluate biliary tree-s/p cholecystectomy start pancreatic enzymes with meals stool fat qualitative stool c.diff eus op=ordered fu labs chromogranin, gastrin, porphyrins add to current labs low cortisol-may need work-up op It was a pleasure seeing Magali Desai. Thank you for this consult. Entered by: Mela Gonsalez MD Oct 02, 2016 17:22
[2016-10-02] MEDS: LIPASE/PROTEASE/AMYLASE (24,000/76,000/120,000) CAP PO SCH (18:16)
[2016-10-02 20:00] VITALS: BP 145/93; PULSE 78; RESP 20; TEMP 98.3; O2SAT 97
[2016-10-02] MEDS: MELATONIN 5 MG TAB PO SCH (21:00)
[2016-10-02] MEDS: traZODone HCL 50 MG TAB PO SCH (21:00)
[2016-10-02] MEDS: CITALOPRAM HYDROBROMIDE 40 MG TAB PO SCH (21:00)
[2016-10-03] VITALS: BP 146/88; PULSE 84; RESP 20; TEMP 98.2; O2SAT 98
[2016-10-03 03:54] LABS: (LFP)ALT 68 U/L (6-29); A2 MACROGLOBULIN 193 mg/dL (106-279); FIBROSIS STAGE F1-F2 (()); GGT(LFP) 118 U/L (3-55); HAPTOGLOBIN (LFP) 58 mg/dL (43-212); IGA SERUM 195 mg/dL (81-463); NECROINFLAMM ACT GRADE A1-A2 (()); REFERENCE ID 1447508 (()); TISSUE TRANSGLUTAMINASE AB IGG ND U/mL (()); TOTAL BILIRUBIN (LFP) 0.5 mg/dL (0.2-1.2)
[2016-10-03] MEDS ORDERED: DIATRIZOATE MEGLUM/DIATRIZOATE SOD 9 ML CUP PO ONE (04:34)
[2016-10-03] MEDS: ONDANSETRON HCL 4 MG/2 ML VIAL IV PRN ×2 (06:09→12:46)
[2016-10-03] MEDS: ACETAMINOPHEN/HYDROcodone 325 MG/5 MG TAB PO PRN ×2 (06:13→12:19)
[2016-10-03] MEDS: INSULIN ASPART SUPPLEMENTAL SCALE SQ SCH ×2 (06:22→11:00)
--- NOTE | 2016-10-03 06:57 | HHI.PR ---
Subjective Remarks Had 5 loose stools yesterday but no bowel movement since. No hematochezia or melena. Tolerated regular diet last night without any cramping or abdominal pain afterwards. She does have some nausea this morning but that may be associated with the oral contrast she's drinking. Overall feeling better. Objective Vitals Vital Signs Date Time Temp Pulse Resp B/P Pulse Ox O2 Delivery O2 Flow Rate FiO2 10/03/16 00:00 98.2 84 20 146/88 98 10/02/16 20:00 98.3 78 20 145/93 97 10/02/16 13:57 20 10/02/16 12:00 97.5 66 18 131/82 97 10/02/16 08:00 98.2 80 18 121/80 95 10/02/16 10/02/16 10/03/16 15:00 23:00 07:00 Intake Total 0 ml 0 ml Balance 0 ml 0 ml IV Total 0 ml 0 ml GENERAL: Appears comfortable in no apparent distress. Alert and oriented. Cooperative with exam. SKIN: Warm and dry. Mildly erythematous patches on forearms and arms. Few areas of ecchymosis on forearms from recent lab draws. HEAD: Normocephalic. EYES: No scleral icterus. No injection or drainage. NECK: Supple, trachea midline. No JVD or lymphadenopathy. CARDIOVASCULAR: Regular rate and rhythm without murmurs, gallops, or rubs. RESPIRATORY: Breath sounds equal bilaterally. No accessory muscle use. GASTROINTESTINAL: Abdomen soft, nondistended. No tenderness to palpation. No guarding. No rebound. Bowel sounds normal. MUSCULOSKELETAL: No cyanosis, or edema. BACK: Nontender without obvious deformity. No CVA tenderness Result Diagram: 09/29/16 1725 10/02/16 0530 Urinary Catheter: No Vascular Central Line Catheter: No A/P Problem List: (1) Pancreatitis Status: Acute Plan: seems to be recurrent issue. Clinically stable. Tolerated oral intake well last night. We'll continue Creon. MRCP negative. GI is on the case. Multiple labs pending guarding possible etiology of her recurrent pancreatitis. CT pending. HIDA scan ordered by GI. Hopefully discharge home today if she tolerates food well. (2) DM2 (diabetes mellitus, type 2) Status: Chronic Plan: A1c 7.3 in May 2016, now 6.7. SSI in hospital. Resume outpatient meds after discharge. (3) Asthma Status: Chronic Plan: nebs. follow clinically. inhalers as at home. (4) Hypertension Status: Chronic Plan: Fairly well controlled. continue rx (5) Major depression Status: Chronic Plan: continue rx Discharge Planning Hopefully discharge later today depending on her capacity to tolerate advanced diet, CT results and HIDA scan. Problem Qualifiers (1) Pancreatitis: Qualified Code: K85.90 - Acute pancreatitis without infection or necrosis, unspecified pancreatitis type (2) Hypertension: Qualified Code: I10 - Essential hypertension (3) Major depression: Van Kirkpatrick PhD MD Oct 03, 2016 06:57
[2016-10-03 07:15] LABS: INDIRECT BILIRUBIN 0.3 MG/DL (0.0-0.8); TOTAL BILIRUBIN ADULT 0.4 MG/DL (0.2-1.0)
[2016-10-03 08:10] VITALS: BP 134/84; PULSE 76; RESP 18; TEMP 97.3; O2SAT 97
[2016-10-03] MEDS ORDERED: IOHEXOL 350 MG/ML 10 ML VIAL (for RAD DIAG) IV ONE (08:19)
[2016-10-03] MEDS: METOPROLOL TARTRATE 25 MG TAB PO SCH (08:57)
[2016-10-03] MEDS: BUDESONIDE-FORMOTEROL 160/4.5 MCG INHALER INH SCH (08:57)
[2016-10-03] MEDS: CYCLOBENZAPRINE HCL 10 MG TAB PO SCH ×2 (08:57→12:19)
[2016-10-03] MEDS: LISDEXAMFETAMINE 50 MG PO SCH (08:58)
[2016-10-03] MEDS: SODIUM CHLORIDE 0.9% FLUSH 5 ML FLUSH IV SCH (08:58)
[2016-10-03] MEDS: LIPASE/PROTEASE/AMYLASE (24,000/76,000/120,000) CAP PO SCH ×2 (09:00→12:19)
--- NOTE | 2016-10-03 09:16 | RADHPO ---
EXAM DATE/TIME: 10/03/2016 08:07 [facility] COMPARISON: CT ABDOMEN & PELVIS W CONTRAST, September 27, 2013, 1:26. INDICATIONS : Epigastric and right upper quadrant pain. IV CONTRAST: 85 cc Omnipaque 350 (iohexol) IV ORAL CONTRAST: Prescribed oral contrast ingested. RADIATION DOSE: 20.37 CTDIvol (mGy) MEDICAL HISTORY : Diabetes mellitus type 2. Gastroesophageal reflux disease. Pancreatitis.Asthma. Hypertension. SURGICAL HISTORY : Appendectomy. Cholecystectomy. section.Hysterectomy. ENCOUNTER: Initial ACUITY: 4 - 6 days PAIN SCALE: 5/10 LOCATION: Right upper quadrant TECHNIQUE: Volumetric scanning of the abdomen and pelvis was performed. Using automated exposure control and ad justment of the mA and/or kV according to patient size, radiation dose was kept as low as reasonably achievable to obtain optimal diagnostic quality images. FINDINGS: LOWER LUNGS: The visualized lower lungs are clear. LIVER: Homogeneous density without lesion. The liver measures 22.4 cm. There is fatty infiltration of the li eladia. There is no dilation of the biliary tree. No gallbladder, surgically removed.. SPLEEN: Normal size without lesion. PANCREAS: Within normal limits. KIDNEYS: Normal in size and shape. There is no mass, stone or hydronephrosis. Extrarenal pelvis on the right side. This is stable. ADRENAL GLANDS: Within normal limits. VASCULAR: There is no aortic aneurysm. BOWEL/MESENTERY: The stomach, small bowel, and colon demonstrate no acute abnormality. There is no free intraperitone al air or fluid. ABDOMINAL WALL: Within normal limits. RETROPERITONEUM: There is no lymphadenopathy. BLADDER: No wall thickening or mass. REPRODUCTIVE: Within normal limits. INGUINAL: There is no lymphadenopathy or hernia. MUSCULOSKELETAL: Within normal limits for patient age. No new significant changes compared to 2013. CONCLUSION: 1. Fatty infiltration of the liver. The liver is mildly enlarged. No significant change 2. No new or significant changes compared to the prior examination from 2013. 3. No acute pathology. Naveed Del Toro MD on October 03, 2016 at 9:12 Board Certified Radiologist. This report was verified electronically.
--- NOTE | 2016-10-03 11:04 | RADHPO ---
EXAM DATE/TIME: 10/03/2016 10:05 [facility] COMPARISON: CT ABDOMEN & PELVIS W CONTRAST, October 03, 2016, 8:07. INDICATIONS : Abdominal pain with nausea and vomiting for one day. DOSE: 4.1 mCi Tc99m Mebrofenin IV MEDICAL HISTORY : Pancreatitis. Diabetes mellitus type 2. Hypertension. SURGICAL HISTORY : Cholecystectomy. Hysterectomy. Appendectomy. ENCOUNTER: Initial ACUITY: 1 day PAIN SCALE: 5/10 LOCATION: Right upper quadrant TECHNIQUE: Following the intravenous administration of radiotracer, dynamic sequential images were performed wit h continuous acquisition. FINDINGS: HEPATIC KINETICS: There is prompt uptake of radiotracer in the liver. The liver is enlarged. No focal defects are seen . There is normal rate of washout from the hepatic parenchyma. BILIARY CLEARANCE: Activity is first seen in the extrahepatic biliary system at 15 minutes. There is normal excretion i nto the small bowel. GALLBLADDER: Surgically absent BILIARY ENTRIC REFLUX: Some seen at the very end of the examination after 45 minutes of acquisition. CONCLUSION: Hepatomegaly without evidence of biliary obstruction. Some degree of bile gastric reflux noted. Krishna Henriquez MD on October 03, 2016 at 10:59 Board Certified Radiologist. This report was verified electronically.
[2016-10-03] MEDS ORDERED: METFORMIN HOLD POST IV CONTRAST XX SCH (12:00)
[2016-10-03 12:24] VITALS: BP 148/92; PULSE 81; RESP 17; TEMP 99; O2SAT 96
[2016-10-03] MEDS ORDERED: CREON24 PO (14:37)
[2016-10-03] MEDS ORDERED: DICY10 PO (14:37)
[2016-10-03 18:36] LABS: ALMOND LESS THAN 0.10 kU/L (()); ALMOND CLASS 0 (()); CASHEW CLASS 0 (()); CODFISH CLASS 0 (()); COWS MILK IGE 0.16 kU/L (()); EGG WHITE 0.13 kU/L (()); HAZELNUT LESS THAN 0.10 kU/L (()); HAZELNUT CLASS 0 (()); MITOCHONDRIAL ABS LESS THAN 20.0 U (()); PEANUT LESS THAN 0.10 kU/L (()); PEANUT CLASS 0 (()); SALMON LESS THAN 0.10 kU/L (()); SALMON CLASS 0 (()); SCALLOP LESS THAN 0.10 kU/L (()); SCALLOP CLASS 0 (()); SESAME SEED LESS THAN 0.10 kU/L (()); SESAME SEED CLASS 0 (()); SHRIMP LESS THAN 0.10 kU/L (()); SHRIMP CLASS 0 (()); SOYBEAN LESS THAN 0.10 kU/L (()); SOYBEAN CLASS 0 (()); TUNA LESS THAN 0.10 kU/L (()); TUNA CLASS 0 (()); WALNUT LESS THAN 0.10 kU/L (()); WALNUT CLASS 0 (()); WHEAT LESS THAN 0.10 kU/L (()); WHEAT CLASS 0 (())
[2016-10-04 07:51] LABS: ENDOMYSIAL AB TITER ND (<1:5); TISSUE TRANSGLUTAMINASE AB LESS THAN 1 U/mL (())
[2016-10-05 23:53] LABS: IGG SUBCLASSES 4 15.9 mg/dL (4-86)
== END 2016-10-03 16:12 | disposition home or self-care (01) | DRG 440 ==
LOC: PHED 16:44 → PHEDA 18:18 → PHEDH 22:18 → PH3B 09-30 08:43
PROVIDERS: ADMIT Family Medicine; ATTEND Family Medicine
DX: K86.1 Other chronic pancreatitis (principal); E11.9 Type 2 diabetes mellitus without complications; I10 Essential (primary) hypertension; J45.909 Unspecified asthma, uncomplicated; F32.9 Major depressive disorder, single episode, unspecified; E78.5 Hyperlipidemia, unspecified; K29.70 Gastritis, unspecified, without bleeding; E66.9 Obesity, unspecified; F41.8 Other specified anxiety disorders
CPT/HCPCS: 74177; 74181; 76377; 78226; 80053; 80061; 80074; 80076; 80320; 82103; 82172; 82247; 82390; 82533; 82728; 82784; 82787; 82941; 82948; 82977; 83010; 83036; 83516; 83520; 83540; 83550; 83690; 83883; 84311; 84460; 84702; 85025; 86003; 86038; 86256; 86316; 96361; 96374; 96375; A9537; J1815; J1885; J2405; J3480; J7030; Q9963; Q9967

== ENCOUNTER 2016-10-13 16:34 | Observation (INO) | payer OTHER ==
[~2016-10-13] VITALS: Ht 162.6 cm; Wt 97.0 kg
[~2016-10-13 16:34] MED LIST changes: -CELE200C PO; +CELE40TA PO; +CINN500C PO; +CREON24 PO; +CYCL1TAB29 PO; +DAPA1TAB3 PO; -DAPA5TAB; +DICY10 PO; +FISH500C PO; +FLUT1INH INH; +GING500C PO; +GLUC500C5 PO; +GNP3TAB PO; -GUAI100S6 PO; +HYDR-3516 PO; +HYDR-3580 PO; +LISI-519 PO; -MEDR4PAK3 PO; -METF-324 PO; +METF1000 PO; +METO25TA3 PO; -MMW SSP; +MOBI7.5T PO; +PANT40TA3 PO; +SYMB160A INH; +TRAZ150T75 PO; -TRAZ50TA4 PO; +VYVA30CA5 PO; -ZITH250T PO
[2016-10-13 16:36] VITALS: BP 155/85; PULSE 82; RESP 20; TEMP 97.9; O2SAT 97
--- NOTE | 2016-10-13 19:49 | PD ---
HPI Chief Complaint: Abdominal Pain Time Seen by Provider: 19:43 Travel History International Travel<30 days: No Contact w/Intl Traveler<30days: No Traveled to known affect area: No History of Present Illness HPI Patient is a 46-year-old female presenting to the emergency room for evaluation of increasing nausea, right upper quadrant abdominal pain. Patient was diagnosed with chronic pancreatitis. She states that she was recently discharged from the hospital, she was placed on a bland diet which she had been tolerating until today. She called Dr. Cam who advised her to go back to a clear liquid diet. Patient states she did that all day but continues to have 7 out of 10 right upper quadrant pain. She denies any vomiting but reports diarrhea. She denies any fever, chills, headache, chest pain, shortness of breath. She denies any history of alcoholism. Does report a history of diabetes, asthma, depression, hypertension. PFSH Past Medical History Arthritis: No Asthma: Yes Anxiety: Yes Depression: Yes Heart Rhythm Problems: No Cancer: No Cardiac Catheterization: No Cardiovascular Problems: Yes High Cholesterol: Yes (at one time, pt takes fish oil) Diabetes: Yes Diminished Hearing: No Gastrointestinal Disorders: Yes GERD: Yes Genitourinary: No Hiatal Hernia: No Hypertension: Yes Immune Disorder: No Implanted Vascular Access Dvce: No Kidney Stones: No Musculoskeletal: Yes Neurologic: No Psychiatric: Yes Reproductive: Yes (HYSTERECTOMY) Respiratory: Yes Immunizations Current: Yes Migraines: No Pancreatitis: Yes Thyroid Disease: No Ulcer: Yes ?: Not : 1 Para: 1 Past Surgical History Abdominal Surgery: Yes (ENDOMETRIAL TISSUE REMOVED 2002) Appendectomy: Yes Cardiac Surgery: No Section: Yes (1998) Cholecystectomy: Yes Coronary Artery Bypass Graft: No Ear Surgery: No Endocrine Surgery: No Eye Surgery: No Genitourinary Surgery: No Gynecologic Surgery: Yes (EXPLORATORY LAP 1990, EXPL LAP C CAUTERIZATION 1997 ) Hysterectomy: Yes Insulin Pump: No Joint Replacement: No Oral Surgery: No Pacemaker: No Thoracic Surgery: No Other Surgery: Yes (EXP LAP, EXP ABD SURGERY) Social History Alcohol Use: No Tobacco Use: No Substance Use: No Allergies-Medications (Allergen,Severity, Reaction): Coded Allergies: Morphine (Verified Allergy, Intermediate, HIVES, 10/13/16) Sulfa (Verified Allergy, Intermediate, HIVES, 10/13/16) Pyridium (Verified Adverse Reaction, Intermediate, VOMITING, 10/13/16) Reported Meds & Prescriptions Reported Meds & Active Scripts Active Creon (Amylase/Lipase/Protease) 24,000-76,000-120,000 Units Cap 2 Cap PO TID Bentyl (Dicyclomine HCl) 10 Mg Cap 10 Mg PO TID PRN Hydrocodone-Acetaminophen 5-325 mg Tab 1 Tab PO Q8HR PRN Pantoprazole (Pantoprazole Sodium) 40 Mg Tab 40 Mg PO DAILY Mobic (Meloxicam) 7.5 Mg Tab 7.5 Mg PO DAILY Metformin (Metformin HCl) 1,000 Mg Tab 1,000 Mg PO BIDPC With meals Reported Vyvanse (Lisdexamfetamine Dimesylate) 30 Mg Cap 30 Mg PO DAILY Cinnamon 500 Mg Cap 1,000 Mg PO DAILY Gnp Melatonin (Melatonin) 3 Mg Tab 1 Tab PO DAILY Anabell (Anabell (Zingiber Officinalis)) 500 Mg Cap 1 Cap PO DAILY Glucosamine (Glucosamine Sulfate) 500 Mg Cap 500 Mg PO DAILY Fish Oil ([place]-3 Fatty Acids) 500 Mg Cap 1 Cap PO DAILY Trazodone (Trazodone HCl) 150 Mg Tab 150 Mg PO HS Celexa (Citalopram Hydrobromide) 40 Mg Tab 60 Mg PO DAILY Farxiga (Dapagliflozin) 10 Mg Tab 10 Mg PO DAILY Flexeril (Cyclobenzaprine HCl) 10 Mg Tab 10 Mg PO TID Hydrocodone-Acetaminophen 7.5-325 mg Tab 1 Tab PO DAILY PRN Symbicort Inh (Budesonide/Formoterol Fumarate) 160-4.5 Mcg/Act Aero 1 Puff INH Q12HR Breo Ellipta Inh (Fluticasone/Vilanterol) 100-25 Mcg/Act Inh 1 Puff INH DAILY Use daily at the same time. Proventil Hfa 6.7 GM Inh (Albuterol Sulfate) 90 Mcg/Act Aer 1 Puff INH Q4H PRN Metoprolol Tartrate 25 Mg Tab 25 Mg PO BID Lisinopril 5 Mg Tab 5 Mg PO DAILY Review of Systems Except as stated in HPI: all other systems reviewed are Neg General / Constitutional: No: Fever Cardiovascular: No: Chest Pain or Discomfort Respiratory: No: Shortness of Breath Gastrointestinal: Positive: Nausea, Diarrhea, Abdominal Pain, No: Vomiting, Loss of Appetite Physical Exam Narrative GENERAL: Overweight, well-developed, alert female. Resting comfortably in no acute distress. SKIN: Warm and dry. HEAD: Atraumatic. Normocephalic. EYES: Pupils equal and round. No scleral icterus. No injection or drainage. ENT: No nasal bleeding or discharge. Mucous membranes pink and moist. NECK: Trachea midline. No JVD. CARDIOVASCULAR: Regular rate and rhythm. No murmur appreciated. RESPIRATORY: No accessory muscle use. Clear to auscultation. Breath sounds equal bilaterally. GASTROINTESTINAL: Abdomen soft, mildly tender to palpation in right upper quadrant, nondistended. Hepatic and splenic margins not palpable. No rebound, no guarding. Positive bowel sounds. MUSCULOSKELETAL: No obvious deformities. No clubbing. No cyanosis. No edema. NEUROLOGICAL: Awake and alert. No obvious cranial nerve deficits. Motor grossly within normal limits. Normal speech. PSYCHIATRIC: Appropriate mood and affect; insight and judgment normal. Data Data Last Documented VS Vital Signs Date Time Temp Pulse Resp B/P Pulse Ox O2 Delivery O2 Flow Rate FiO2 10/13/16 16:36 97.9 82 20 155/85 97 Room Air Orders Complete Blood Count With Diff (10/13/16 19:31) Comprehensive Metabolic Panel (10/13/16 19:31) Lipase (10/13/16 19:31) Urinalysis - C+S If Indicated (10/13/16 19:31) Sodium Chlor 0.9% 1000 Ml Inj (Ns 1000 M (10/13/16 21:45) Hydromorphone Pf Inj (Dilaudid Pf Inj) (10/13/16 21:45) Ondansetron Inj (Zofran Inj) (10/13/16 21:45) Admit Order (Ed Use Only) (10/13/16 21:36) Labs Laboratory Tests Test 10/13/16 20:00 White Blood Count 9.2 TH/MM3 Red Blood Count 4.85 MIL/MM3 Hemoglobin 14.8 GM/DL Hematocrit 43.0 % Mean Corpuscular Volume 88.7 FL Mean Corpuscular Hemoglobin 30.6 PG Mean Corpuscular Hemoglobin 34.5 % Concent Red Cell Distribution Width 12.9 % Platelet Count 227 TH/MM3 Mean Platelet Volume 8.7 FL Neutrophils (%) (Auto) 45.4 % Lymphocytes (%) (Auto) 45.3 % Monocytes (%) (Auto) 6.4 % Eosinophils (%) (Auto) 1.9 % Basophils (%) (Auto) 1.0 % Neutrophils # (Auto) 4.2 TH/MM3 Lymphocytes # (Auto) 4.2 TH/MM3 Monocytes # (Auto) 0.6 TH/MM3 Eosinophils # (Auto) 0.2 TH/MM3 Basophils # (Auto) 0.1 TH/MM3 CBC Comment DIFF FINAL Differential Comment Urine Color LIGHT-YELLOW Urine Turbidity CLEAR Urine pH 6.0 Urine Specific [place] 1.007 Urine Protein NEG mg/dL Urine Glucose (UA) 1000 mg/dL Urine Ketones NEG mg/dL Urine Occult Blood NEG Urine Nitrite NEG Urine Bilirubin NEG Urine Urobilinogen LESS THAN 2.0 MG/DL Urine Leukocyte Esterase NEG Urine RBC LESS THAN 1 /hpf Urine WBC 1 /hpf Urine Squamous Epithelial 1 /hpf Cells Microscopic Urinalysis Comment CULT NOT INDICATED Sodium Level 137 MEQ/L Potassium Level 3.8 MEQ/L Chloride Level 101 MEQ/L Carbon Dioxide Level 28.2 MEQ/L Anion Gap 8 MEQ/L Blood Urea Nitrogen 11 MG/DL Creatinine 0.75 MG/DL Estimat Glomerular Filtration 84 ML/MIN Rate Random Glucose 102 MG/DL Calcium Level 9.0 MG/DL Total Bilirubin 0.5 MG/DL Aspartate Amino Transf 26 U/L (AST/SGOT) Alanine Aminotransferase 50 U/L (ALT/SGPT) Alkaline Phosphatase 62 U/L Total Protein 7.5 GM/DL Albumin 4.4 GM/DL Lipase 619 U/L MDM Medical Decision Making Medical Screen Exam Complete: Yes Emergency Medical Condition: Yes Medical Record Reviewed: Yes Interpretation(s) Vital Signs Date Time Temp Pulse Resp B/P Pulse Ox O2 Delivery O2 Flow Rate FiO2 10/13/16 16:36 97.9 82 20 155/85 97 Room Air Differential Diagnosis Chronic pancreatitis versus gastritis versus gastroenteritis versus other Narrative Course Patient is a 46-year-old female presenting to emergency for evaluation of right upper quadrant abdominal pain, nausea, diarrhea. Patient was diagnosed with chronic pancreatitis, she was discharged from the hospital on 10/03/16. Her initial lipase was elevated greater than 2200, by discharge it was 468. CT scan of the abdomen and pelvis performed on 10/03 which showed a fatty liver. HIDA scan showed hepatomegaly without biliary obstruction and some degree of bile gastric reflux MRCP was unremarkable. Workup initiated in triage, care patient will be transferred to provider with a medical bed is available. Saadia Addison GOLF CADDY Oct 13, 2016 19:49
[2016-10-13 20:14] LABS: BLOOD, URINE NEG (NEG); COMMENT (UR) CULT NOT INDICATED; CULTURE IF INDICATED CULT NOT INDICATED; GLUCOSE,URINE 1000 mg/dL (NEG); KETONE, URINE NEG (NEG); NITRITE,URINE NEG (NEG); SQUAMOUS EPITHELIAL CELL URINE 1 /hpf (0-5); URINE COLOR LIGHT-YELLOW (YELLW/STRAW)
[2016-10-13 20:18] LABS: AUTOMATED NEUTROPHIL # 4.2 TH/MM3 (1.8-7.7); BASOPHIL # 0.1 TH/MM3 (0-0.2); EOSINOPHIL # 0.2 TH/MM3 (0-0.4); EOSINOPHIL % 1.9 % (0.0-4.0); HEMO FLAGS DIFF FINAL; LYMPH % 45.3 % (9.0-44.0); LYMPHOCYTE # 4.2 TH/MM3 (1.0-4.8); MEAN CELL VOLUME 88.7 FL (80.0-100.0); MEAN CORPUSCULAR HEMOGLOBIN 30.6 PG (27.0-34.0); MEAN CORPUSCULAR HGB CONC 34.5 % (32.0-36.0); MONO % 6.4 % (0.0-8.0); NEUT % 45.4 % (16.0-70.0); PLATELET COUNT 227 TH/MM3 (150-450); RED BLOOD COUNT 4.85 MIL/MM3 (4.00-5.30); RED CELL DISTRIBUTION WIDTH 12.9 % (11.6-17.2); WHITE BLOOD COUNT 9.2 TH/MM3 (4.0-11.0)
[2016-10-13 20:19] LABS: ANION GAP 8 MEQ/L (5-15); BICARBONATE 28.2 MEQ/L (21.0-32.0); BLOOD UREA NITROGEN 11 MG/DL (7-18); CHLORIDE 101 MEQ/L (98-107); GLOMERULAR FILTRATION RATE 84 ML/MIN (>89); POTASSIUM 3.8 MEQ/L (3.5-5.1); SODIUM (NA) 137 MEQ/L (136-145)
[2016-10-13 20:22] LABS: ALKALINE PHOSPHATASE 62 U/L (45-117); ALT (GPT) 50 U/L (10-53); AST (GOT) 26 U/L (15-37); TOTAL BILIRUBIN ADULT 0.5 MG/DL (0.2-1.0)
--- NOTE | 2016-10-13 21:29 | PD ---
HPI Chief Complaint: Abdominal Pain Time Seen by Provider: 21:23 Travel History International Travel<30 days: No Contact w/Intl Traveler<30days: No Traveled to known affect area: No History of Present Illness HPI 46-year-old female with history of pancreatitis, admitted to the hospital 2 weeks ago for pancreatitis, here again with 7 out of 10 of her abdominal pain, nausea, vomiting, diarrhea, which she states is not significantly improving with hydrocodone and Zofran given to her for outpatient therapy. She states that it had been controlling her pain for the past week but she has experienced a worsening. She had talked to GI, Dr. Cam, and was told to go back on clear liquid diet and if that did not work today to come to the ER. Patient states that it is not working. She denies any fevers or any other symptoms. She is status post cholecystectomy in the past. Pain is more right upper quadrant and intermittent, got worse after eating today. Modifying Factors: Worse with eating Associated Signs & Symptoms: Abdominal pains, nausea, vomiting Risk Factors: Pancreatitis history PFSH Past Medical History Arthritis: No Asthma: Yes Anxiety: Yes Depression: Yes Heart Rhythm Problems: No Cancer: No Cardiac Catheterization: No Cardiovascular Problems: Yes High Cholesterol: Yes (at one time, pt takes fish oil) Diabetes: Yes Diminished Hearing: No Gastrointestinal Disorders: Yes GERD: Yes Genitourinary: No Hiatal Hernia: No Hypertension: Yes Immune Disorder: No Implanted Vascular Access Dvce: No Kidney Stones: No Musculoskeletal: Yes Neurologic: No Psychiatric: Yes Reproductive: Yes (HYSTERECTOMY) Respiratory: Yes Immunizations Current: Yes Migraines: No Pancreatitis: Yes Thyroid Disease: No Ulcer: Yes ?: Not : 1 Para: 1 Past Surgical History Abdominal Surgery: Yes (ENDOMETRIAL TISSUE REMOVED 2002) Appendectomy: Yes Cardiac Surgery: No Section: Yes (1998) Cholecystectomy: Yes Coronary Artery Bypass Graft: No Ear Surgery: No Endocrine Surgery: No Eye Surgery: No Genitourinary Surgery: No Gynecologic Surgery: Yes (EXPLORATORY LAP 1990, EXPL LAP C CAUTERIZATION 1997 ) Hysterectomy: Yes Insulin Pump: No Joint Replacement: No Oral Surgery: No Pacemaker: No Thoracic Surgery: No Other Surgery: Yes (EXP LAP, EXP ABD SURGERY) Social History Alcohol Use: No Tobacco Use: No Substance Use: No Allergies-Medications (Allergen,Severity, Reaction): Coded Allergies: Morphine (Verified Allergy, Intermediate, HIVES, 10/13/16) Sulfa (Verified Allergy, Intermediate, HIVES, 10/13/16) Pyridium (Verified Adverse Reaction, Intermediate, VOMITING, 10/13/16) Reported Meds & Prescriptions Reported Meds & Active Scripts Active Creon (Amylase/Lipase/Protease) 24,000-76,000-120,000 Units Cap 2 Cap PO TID Bentyl (Dicyclomine HCl) 10 Mg Cap 10 Mg PO TID PRN Hydrocodone-Acetaminophen 5-325 mg Tab 1 Tab PO Q8HR PRN Pantoprazole (Pantoprazole Sodium) 40 Mg Tab 40 Mg PO DAILY Mobic (Meloxicam) 7.5 Mg Tab 7.5 Mg PO DAILY Metformin (Metformin HCl) 1,000 Mg Tab 1,000 Mg PO BIDPC With meals Reported Vyvanse (Lisdexamfetamine Dimesylate) 30 Mg Cap 30 Mg PO DAILY Cinnamon 500 Mg Cap 1,000 Mg PO DAILY Gnp Melatonin (Melatonin) 3 Mg Tab 1 Tab PO DAILY Anabell (Anabell (Zingiber Officinalis)) 500 Mg Cap 1 Cap PO DAILY Glucosamine (Glucosamine Sulfate) 500 Mg Cap 500 Mg PO DAILY Fish Oil ([place]-3 Fatty Acids) 500 Mg Cap 1 Cap PO DAILY Trazodone (Trazodone HCl) 150 Mg Tab 150 Mg PO HS Celexa (Citalopram Hydrobromide) 40 Mg Tab 60 Mg PO DAILY Farxiga (Dapagliflozin) 10 Mg Tab 10 Mg PO DAILY Flexeril (Cyclobenzaprine HCl) 10 Mg Tab 10 Mg PO TID Hydrocodone-Acetaminophen 7.5-325 mg Tab 1 Tab PO DAILY PRN Symbicort Inh (Budesonide/Formoterol Fumarate) 160-4.5 Mcg/Act Aero 1 Puff INH Q12HR Breo Ellipta Inh (Fluticasone/Vilanterol) 100-25 Mcg/Act Inh 1 Puff INH DAILY Use daily at the same time. Proventil Hfa 6.7 GM Inh (Albuterol Sulfate) 90 Mcg/Act Aer 1 Puff INH Q4H PRN Metoprolol Tartrate 25 Mg Tab 25 Mg PO BID Lisinopril 5 Mg Tab 5 Mg PO DAILY Review of Systems Except as stated in HPI: all other systems reviewed are Neg Physical Exam Narrative GENERAL: Well-nourished, well-developed middle age white female patient in mild distress. Awake and oriented 3. SKIN: Warm and dry. HEAD: Normocephalic. EYES: No scleral icterus. No injection or drainage. NECK: Supple, trachea midline. CARDIOVASCULAR: Regular rate and rhythm without murmurs, gallops, or rubs. RESPIRATORY: Breath sounds equal bilaterally. No accessory muscle use. GASTROINTESTINAL: Abdomen soft, mild right upper quadrant tenderness and epigastric tenderness without guarding or rebound, nondistended. MUSCULOSKELETAL: No cyanosis, or edema. BACK: Nontender without obvious deformity. No CVA tenderness. Data Data Last Documented VS Vital Signs Date Time Temp Pulse Resp B/P Pulse Ox O2 Delivery O2 Flow Rate FiO2 10/13/16 16:36 97.9 82 20 155/85 97 Room Air Orders Complete Blood Count With Diff (10/13/16 19:31) Comprehensive Metabolic Panel (10/13/16 19:31) Lipase (10/13/16 19:31) Urinalysis - C+S If Indicated (10/13/16 19:31) Sodium Chlor 0.9% 1000 Ml Inj (Ns 1000 M (10/13/16 21:45) Hydromorphone Pf Inj (Dilaudid Pf Inj) (10/13/16 21:45) Ondansetron Inj (Zofran Inj) (10/13/16 21:45) Labs Laboratory Tests Test 10/13/16 20:00 White Blood Count 9.2 TH/MM3 Red Blood Count 4.85 MIL/MM3 Hemoglobin 14.8 GM/DL Hematocrit 43.0 % Mean Corpuscular Volume 88.7 FL Mean Corpuscular Hemoglobin 30.6 PG Mean Corpuscular Hemoglobin 34.5 % Concent Red Cell Distribution Width 12.9 % Platelet Count 227 TH/MM3 Mean Platelet Volume 8.7 FL Neutrophils (%) (Auto) 45.4 % Lymphocytes (%) (Auto) 45.3 % Monocytes (%) (Auto) 6.4 % Eosinophils (%) (Auto) 1.9 % Basophils (%) (Auto) 1.0 % Neutrophils # (Auto) 4.2 TH/MM3 Lymphocytes # (Auto) 4.2 TH/MM3 Monocytes # (Auto) 0.6 TH/MM3 Eosinophils # (Auto) 0.2 TH/MM3 Basophils # (Auto) 0.1 TH/MM3 CBC Comment DIFF FINAL Differential Comment Urine Color LIGHT-YELLOW Urine Turbidity CLEAR Urine pH 6.0 Urine Specific [place] 1.007 Urine Protein NEG mg/dL Urine Glucose (UA) 1000 mg/dL Urine Ketones NEG mg/dL Urine Occult Blood NEG Urine Nitrite NEG Urine Bilirubin NEG Urine Urobilinogen LESS THAN 2.0 MG/DL Urine Leukocyte Esterase NEG Urine RBC LESS THAN 1 /hpf Urine WBC 1 /hpf Urine Squamous Epithelial 1 /hpf Cells Microscopic Urinalysis Comment CULT NOT INDICATED Sodium Level 137 MEQ/L Potassium Level 3.8 MEQ/L Chloride Level 101 MEQ/L Carbon Dioxide Level 28.2 MEQ/L Anion Gap 8 MEQ/L Blood Urea Nitrogen 11 MG/DL Creatinine 0.75 MG/DL Estimat Glomerular Filtration 84 ML/MIN Rate Random Glucose 102 MG/DL Calcium Level 9.0 MG/DL Total Bilirubin 0.5 MG/DL Aspartate Amino Transf 26 U/L (AST/SGOT) Alanine Aminotransferase 50 U/L (ALT/SGPT) Alkaline Phosphatase 62 U/L Total Protein 7.5 GM/DL Albumin 4.4 GM/DL Lipase 619 U/L [facility] Medical Decision Making Medical Screen Exam Complete: Yes Emergency Medical Condition: Yes Medical Record Reviewed: Yes Interpretation(s) Laboratory Tests Test 10/13/16 20:00 Lymphocytes (%) (Auto) 45.3 % (9.0-44.0) Urine Glucose (UA) 1000 mg/dL (NEG) Estimat Glomerular Filtration 84 ML/MIN (>89) Rate Lipase 619 U/L (73-393) Differential Diagnosis Pancreatitis versus gastritis versus gastroenteritis versus dehydration versus metabolic issues Narrative Course Lab work indicates worsening and pancreatitis. At this point, my plan would be to admit the patient for observation and further evaluation. Case was discussed with Dr. Mcghee for admission. Diagnosis Primary Impression: Pancreatitis Admitting Information Admitting Physician Requests: Admit Agatha Castañeda MD Oct 13, 2016 21:29
[2016-10-13] MEDS ORDERED: HYDROmorphone HCL PF 1 MG/ML VIAL IV PUSH ONE (21:45)
[2016-10-13] MEDS ORDERED: ONDANSETRON HCL 4 MG/2 ML VIAL IV PUSH ONE (21:45)
[2016-10-13] MEDS ORDERED: SODIUM CHLOR 0.9% 1000 ML INJ 1,000 ML IV ONE (21:45)
[2016-10-13] MEDS ORDERED: SODIUM CHLORIDE 0.9% FLUSH 5 ML FLUSH FLUSH PRN (22:00)
[2016-10-13] MEDS ORDERED: ALBUTEROL SULFATE 90 MCG/ACT HFA 8 GM INHALER INH PRN (22:00)
[2016-10-13] MEDS ORDERED: DICYCLOMINE HCL 10 MG CAP PO PRN (22:00)
[2016-10-13] MEDS ORDERED: NALOXONE HCL 0.4 MG/ML AMP IV PRN (22:00)
[2016-10-13] MEDS ORDERED: PILL SPLITTER OTHER PRN (22:15)
--- NOTE | 2016-10-13 23:18 | HHI.HP ---
HPI Service [facility] Hospitalists Primary Care Physician Buck Patel M.D. Admission Diagnosis acute pancreatitis Chief Complaint: abdominal pain today Travel History International Travel<30 Days: No Contact w/Intl Traveler <30 Da: No Traveled to Known Affected Are: No History of Present Illness Patient is a 46-year-old female presenting to the emergency room for evaluation of increasing nausea, right upper quadrant abdominal pain. Patient was diagnosed with chronic pancreatitis last week. She states that she was recently discharged from the hospital, she was placed on a bland diet which she had been tolerating until today. Patient has had some loose stools this week and had very little pain until today when she ate tilapia fish and shortly after that started haqving pain with nausea. She called Dr. Cam who advised her to go back to a clear liquid diet. Patient states she did that all day but continues to have 7 out of 10 right upper quadrant pain. She denies any vomiting but reports diarrhea. She denies any fever, chills, headache, chest pain, shortness of breath. She denies any history of alcoholism. Does report a history of diabetes, asthma, depression, hypertension. In er had elevated lipase and admitted for pancreatitis. Review of Systems Gastrointestinal: COMPLAINS OF: Abdominal pain, Nausea Past Family Social History Past Medical History asthma,anxiety depression,diabetes,hypertension,GERD,hx ulcer pancreatitis 3 times since 2012 Past Surgical History gallbladder,hysterectomy,appendix,ex lap Reported Medications Creon (Amylase/Lipase/Protease) 24,000-76,000-120,000 Units Cap 2 Cap PO TID Bentyl (Dicyclomine HCl) 10 Mg Cap 10 Mg PO TID PRN Hydrocodone-Acetaminophen 5-325 mg Tab 1 Tab PO Q8HR PRN Pantoprazole (Pantoprazole Sodium) 40 Mg Tab 40 Mg PO DAILY Mobic (Meloxicam) 7.5 Mg Tab 7.5 Mg PO DAILY Metformin (Metformin HCl) 1,000 Mg Tab 1,000 Mg PO BIDPC With meals Reported Vyvanse (Lisdexamfetamine Dimesylate) 30 Mg Cap 30 Mg PO DAILY Cinnamon 500 Mg Cap 1,000 Mg PO DAILY Gnp Melatonin (Melatonin) 3 Mg Tab 1 Tab PO DAILY Anabell (Anabell (Zingiber Officinalis)) 500 Mg Cap 1 Cap PO DAILY Glucosamine (Glucosamine Sulfate) 500 Mg Cap 500 Mg PO DAILY Fish Oil ([place]-3 Fatty Acids) 500 Mg Cap 1 Cap PO DAILY Trazodone (Trazodone HCl) 150 Mg Tab 150 Mg PO HS Celexa (Citalopram Hydrobromide) 40 Mg Tab 60 Mg PO DAILY Farxiga (Dapagliflozin) 10 Mg Tab 10 Mg PO DAILY Flexeril (Cyclobenzaprine HCl) 10 Mg Tab 10 Mg PO TID Hydrocodone-Acetaminophen 7.5-325 mg Tab 1 Tab PO DAILY PRN Symbicort Inh (Budesonide/Formoterol Fumarate) 160-4.5 Mcg/Act Aero 1 Puff INH Q12HR Breo Ellipta Inh (Fluticasone/Vilanterol) 100-25 Mcg/Act Inh 1 Puff INH DAILY Use daily at the same time. Proventil Hfa 6.7 GM Inh (Albuterol Sulfate) 90 Mcg/Act Aer 1 Puff INH Q4H PRN Metoprolol Tartrate 25 Mg Tab 25 Mg PO BID Lisinopril 5 Mg Tab 5 Mg PO DAILY Allergies: Coded Allergies: Morphine (Verified Allergy, Intermediate, HIVES, 10/13/16) Sulfa (Verified Allergy, Intermediate, HIVES, 10/13/16) Pyridium (Verified Adverse Reaction, Intermediate, VOMITING, 10/13/16) Social History NS,ND Physical Exam Vital Signs Vital Signs Date Time Temp Pulse Resp B/P Pulse Ox O2 Delivery O2 Flow Rate FiO2 10/13/16 16:36 97.9 82 20 155/85 97 Room Air Physical Exam GENERAL: This is a well-nourished, well-developed patient, in no apparent distress. SKIN: No rashes, ecchymoses or lesions. Cool and dry. HEAD: Atraumatic. Normocephalic. No temporal or scalp tenderness. EYES: Pupils equal round and reactive. Extraocular motions intact. No scleral icterus. No injection or drainage. ENT: Nose without bleeding, purulent drainage or septal hematoma. Throat without erythema, tonsillar hypertrophy or exudate. Uvula midline. Airway patent. NECK: Trachea midline. No JVD or lymphadenopathy. Supple, nontender, no meningeal signs. CARDIOVASCULAR: Regular rate and rhythm without murmurs, gallops, or rubs. RESPIRATORY: Clear to auscultation. Breath sounds equal bilaterally. No wheezes , rales, or rhonchi. GASTROINTESTINAL: Abdomen soft, slight rt upper quadrant-tender, nondistended. No hepato-splenomegaly, or palpable masses. No guarding. MUSCULOSKELETAL: Extremities without clubbing, cyanosis, or edema. No joint tenderness, effusion, or edema noted. No calf tenderness. Negative Homans sign bilaterally. NEUROLOGICAL: Awake and alert. Cranial nerves II through XII intact. Motor and sensory grossly within normal limits. Five out of 5 muscle strength in all muscle groups. Normal speech. Laboratory Laboratory Tests Test 10/13/16 20:00 White Blood Count 9.2 Red Blood Count 4.85 Hemoglobin 14.8 Hematocrit 43.0 Mean Corpuscular Volume 88.7 Mean Corpuscular Hemoglobin 30.6 Mean Corpuscular Hemoglobin 34.5 Concent Red Cell Distribution Width 12.9 Platelet Count 227 Mean Platelet Volume 8.7 Neutrophils (%) (Auto) 45.4 Lymphocytes (%) (Auto) 45.3 Monocytes (%) (Auto) 6.4 Eosinophils (%) (Auto) 1.9 Basophils (%) (Auto) 1.0 Neutrophils # (Auto) 4.2 Lymphocytes # (Auto) 4.2 Monocytes # (Auto) 0.6 Eosinophils # (Auto) 0.2 Basophils # (Auto) 0.1 CBC Comment DIFF FINAL Differential Comment Urine Color LIGHT-YELLOW Urine Turbidity CLEAR Urine pH 6.0 Urine Specific [place] 1.007 Urine Protein NEG Urine Glucose (UA) 1000 Urine Ketones NEG Urine Occult Blood NEG Urine Nitrite NEG Urine Bilirubin NEG Urine Urobilinogen LESS THAN 2.0 Urine Leukocyte Esterase NEG Urine RBC LESS THAN 1 Urine WBC 1 Urine Squamous Epithelial 1 Cells Microscopic Urinalysis Comment CULT NOT INDICATED Sodium Level 137 Potassium Level 3.8 Chloride Level 101 Carbon Dioxide Level 28.2 Anion Gap 8 Blood Urea Nitrogen 11 Creatinine 0.75 Estimat Glomerular Filtration 84 Rate Random Glucose 102 Calcium Level 9.0 Total Bilirubin 0.5 Aspartate Amino Transf 26 (AST/SGOT) Alanine Aminotransferase 50 (ALT/SGPT) Alkaline Phosphatase 62 Total Protein 7.5 Albumin 4.4 Lipase 619 Result Diagram: 10/13/16199910/13/161999 Course in er received hydromorph with improvement in symptoms Assessment and Plan Problem List: (1) Pancreatitis Status: Acute Plan: recurrent IV fluid NPO for now consult GI pain meds follow labs according to patient has endoscopic ultrasound scheduled this month (2) DM2 (diabetes mellitus, type 2) Status: Chronic Plan: sliding scale for now (3) Hypertension Status: Chronic Plan: continue home meds Assessment and Plan further plan as case progresses and GI evaluation continue other regular home medications Code Status full Discussed Condition With patient Han Londono MD Oct 13, 2016 23:18
[2016-10-13] MEDS ORDERED: SIMETHICONE 80 MG CHEWABLE TAB CHEW PRN (23:30)
[2016-10-14 00:20] VITALS: BP 109/55
[2016-10-14] MEDS ORDERED: CITALOPRAM HYDROBROMIDE 40 MG TAB PO ONE (00:30)
[2016-10-14 00:43] VITALS: BP 141/68; PULSE 83; RESP 18; TEMP 97.9; O2SAT 96
[2016-10-14] MEDS ORDERED: CYCLOBENZAPRINE HCL 10 MG TAB PO ONE (00:45)
[2016-10-14] MEDS ORDERED: traZODone HCL 50 MG TAB PO ONE (00:45)
[2016-10-14] MEDS: PANTOPRAZOLE SODIUM 40 MG VIAL IV PUSH SCH ×2 (01:43→22:26)
[2016-10-14] MEDS: SODIUM CHLOR 0.45% 1000 ML INJ 1,000 ML IV SCH ×3 (01:43→23:48)
[2016-10-14] MEDS: HYDROmorphone HCL PF 1 MG/ML VIAL IV PRN ×4 (01:46→23:03)
[2016-10-14] MEDS: INSULIN ASPART SUPPLEMENTAL SCALE SQ SCH ×4 (07:00→21:00)
[2016-10-14 08:04] VITALS: BP 100/54; PULSE 63; RESP 18; TEMP 97.6; O2SAT 94
[2016-10-14 08:14] LABS: AUTOMATED NEUTROPHIL # 2.4 TH/MM3 (1.8-7.7); BASOPHIL % 0.6 % (0.0-2.0); EOSINOPHIL # 0.1 TH/MM3 (0-0.4); EOSINOPHIL % 1.8 % (0.0-4.0); HEMO FLAGS DIFF FINAL; LYMPH % 44.6 % (9.0-44.0); LYMPHOCYTE # 2.4 TH/MM3 (1.0-4.8); MEAN CELL VOLUME 89.3 FL (80.0-100.0); MEAN CORPUSCULAR HEMOGLOBIN 30.8 PG (27.0-34.0); MEAN CORPUSCULAR HGB CONC 34.5 % (32.0-36.0); MONO % 7.7 % (0.0-8.0); NEUT % 45.3 % (16.0-70.0); PLATELET COUNT 183 TH/MM3 (150-450); RED BLOOD COUNT 4.37 MIL/MM3 (4.00-5.30); RED CELL DISTRIBUTION WIDTH 12.9 % (11.6-17.2); WHITE BLOOD COUNT 5.4 TH/MM3 (4.0-11.0)
[2016-10-14 08:51] LABS: ALKALINE PHOSPHATASE 77 U/L (45-117); ALT (GPT) 228 U/L (10-53); ANION GAP 6 MEQ/L (5-15); AST (GOT) 261 U/L (15-37); BICARBONATE 29.6 MEQ/L (21.0-32.0); BLOOD UREA NITROGEN 10 MG/DL (7-18); CHLORIDE 105 MEQ/L (98-107); GLOMERULAR FILTRATION RATE 91 ML/MIN (>89); POTASSIUM 3.7 MEQ/L (3.5-5.1); SODIUM (NA) 141 MEQ/L (136-145); TOTAL BILIRUBIN ADULT 0.6 MG/DL (0.2-1.0)
[2016-10-14] MEDS ORDERED: CITALOPRAM HYDROBROMIDE 40 MG TAB PO SCH (09:00)
[2016-10-14] MEDS: BUDESONIDE-FORMOTEROL 160/4.5 MCG INHALER INH SCH ×2 (09:00→21:00)
[2016-10-14] MEDS: LIPASE/PROTEASE/AMYLASE (24,000/76,000/120,000) CAP PO SCH ×3 (09:00→18:36)
[2016-10-14] MEDS: LISINOPRIL 5 MG TAB PO SCH (09:00)
[2016-10-14] MEDS ORDERED: LISDEXAMFETAMINE DIMESYLATE 30 MG CAP PO SCH (09:00)
[2016-10-14] MEDS ORDERED: LISDEXAMFETAMINE DIMESYLATE 30 MG PO SCH (09:00)
[2016-10-14] MEDS: FLUTICASONE 100 MCG/VILANTEROL 25 MCG INHALER INH SCH (09:00)
[2016-10-14] MEDS: SODIUM CHLORIDE 0.9% FLUSH 5 ML FLUSH FLUSH SCH ×2 (09:07→21:00)
[2016-10-14] MEDS: CYCLOBENZAPRINE HCL 10 MG TAB PO SCH ×3 (09:08→18:36)
[2016-10-14] MEDS: METOPROLOL TARTRATE 25 MG TAB PO SCH ×2 (09:08→22:26)
--- NOTE | 2016-10-14 10:07 | HHI.PR ---
Subjective Remarks Pt reports that her abd pain is improving No further nausea/vomiting. Objective Vitals Vital Signs Date Time Temp Pulse Resp B/P Pulse Ox O2 Delivery O2 Flow Rate FiO2 10/14/16 08:04 97.6 63 18 100/54 94 10/14/16 02:56 18 10/14/16 00:43 97.9 83 18 141/68 96 10/14/16 00:20 75 16 109/55 98 10/13/16 16:36 97.9 82 20 155/85 97 Room Air Result Diagram: 10/14/16 0715 10/14/16 0715 Other Results Laboratory Tests Test 10/13/16 10/14/16 20:00 07:15 White Blood Count 9.2 TH/MM3 5.4 TH/MM3 Red Blood Count 4.85 MIL/MM3 4.37 MIL/MM3 Hemoglobin 14.8 GM/DL 13.4 GM/DL Hematocrit 43.0 % 39.0 % Mean Corpuscular Volume 88.7 FL 89.3 FL Mean Corpuscular Hemoglobin 30.6 PG 30.8 PG Mean Corpuscular Hemoglobin 34.5 % 34.5 % Concent Red Cell Distribution Width 12.9 % 12.9 % Platelet Count 227 TH/MM3 183 TH/MM3 Mean Platelet Volume 8.7 FL 9.2 FL Neutrophils (%) (Auto) 45.4 % 45.3 % Lymphocytes (%) (Auto) 45.3 % 44.6 % Monocytes (%) (Auto) 6.4 % 7.7 % Eosinophils (%) (Auto) 1.9 % 1.8 % Basophils (%) (Auto) 1.0 % 0.6 % Neutrophils # (Auto) 4.2 TH/MM3 2.4 TH/MM3 Lymphocytes # (Auto) 4.2 TH/MM3 2.4 TH/MM3 Monocytes # (Auto) 0.6 TH/MM3 0.4 TH/MM3 Eosinophils # (Auto) 0.2 TH/MM3 0.1 TH/MM3 Basophils # (Auto) 0.1 TH/MM3 0.0 TH/MM3 CBC Comment DIFF FINAL DIFF FINAL Differential Comment Urine Color LIGHT-YELLOW Urine Turbidity CLEAR Urine pH 6.0 Urine Specific [place] 1.007 Urine Protein NEG mg/dL Urine Glucose (UA) 1000 mg/dL Urine Ketones NEG mg/dL Urine Occult Blood NEG Urine Nitrite NEG Urine Bilirubin NEG Urine Urobilinogen LESS THAN 2.0 MG/DL Urine Leukocyte Esterase NEG Urine RBC LESS THAN 1 /hpf Urine WBC 1 /hpf Urine Squamous Epithelial 1 /hpf Cells Microscopic Urinalysis Comment CULT NOT INDICATED Sodium Level 137 MEQ/L 141 MEQ/L Potassium Level 3.8 MEQ/L 3.7 MEQ/L Chloride Level 101 MEQ/L 105 MEQ/L Carbon Dioxide Level 28.2 MEQ/L 29.6 MEQ/L Anion Gap 8 MEQ/L 6 MEQ/L Blood Urea Nitrogen 11 MG/DL 10 MG/DL Creatinine 0.75 MG/DL 0.70 MG/DL Estimat Glomerular Filtration 84 ML/MIN 91 ML/MIN Rate Random Glucose 102 MG/DL 107 MG/DL Calcium Level 9.0 MG/DL 8.2 MG/DL Total Bilirubin 0.5 MG/DL 0.6 MG/DL Aspartate Amino Transf 26 U/L 261 U/L (AST/SGOT) Alanine Aminotransferase 50 U/L 228 U/L (ALT/SGPT) Alkaline Phosphatase 62 U/L 77 U/L Total Protein 7.5 GM/DL 6.3 GM/DL Albumin 4.4 GM/DL 3.6 GM/DL Lipase 619 U/L 325 U/L Objective Remarks General: NAD, AAOx3 Chest: CTA Cardiac: Regular Abd: +BS, soft nontender Ext: No edema A/P Problem List: (1) Pancreatitis Status: Acute Plan: - Pt has had recurrent pancreatitis of unclear etiology - She has had about 5 episodes of pancreatitis diagnosed since 11/2012. 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 She denies any alcohol use at all. Pt had her GB removed previously. - Pt is following with GI outpt and is planned for EUS on 10/31/16 - Pt is currently NPO - IV fluid - GI is consulted - Pain meds PRN - Monitor labs - Supportive Care (2) DM2 (diabetes mellitus, type 2) Status: Chronic Plan: - NovoLog SSI - Accu checks (3) Hypertension Status: Chronic Plan: - Continue home meds Assessment and Plan Patient examined. Assessment and plan formulated with Elsy Jennings PA-C. I agree with the above. acute pancreatitis. recurrent. unknown etiology.follows with GI and EUS was planned. GI consulted. ivf. advance diet per GI. lft elevated. recheck. Elsy Jennings Oct 14, 2016 10:07 Campos Matos MD Oct 14, 2016 11:38
[2016-10-14] MEDS ORDERED: ACETAMIN 325 MG/BUTALBITAL 50 MG/CAFFEINE 40 MG TAB PO ONE (10:15)
[2016-10-14] MEDS: ONDANSETRON HCL 4 MG/2 ML VIAL IVP PRN (11:13)
[2016-10-14 12:05] VITALS: BP 148/72; PULSE 72; RESP 18; TEMP 97.8; O2SAT 95
[2016-10-14 16:10] VITALS: BP 144/82; PULSE 71; RESP 18; TEMP 97.9; O2SAT 98
--- NOTE | 2016-10-14 16:57 | PD.CONS ---
HPI History of Present Illness This is a 46 year old lady with past medical history of chronic pancreatitis, diabetes, HTN, s/p cholecystectomy 2012. Presented to ED with severe constant RUQ pain 7 on 0-10 scale started on Thursday after eating [place] and sweet potatoes. She has only been on clear liquids without relief and this is associated with nausea. She was hospitalized 2 weeks ago for pancreatitis, at which time she had extensive work up including HIDA scan which indicated hepatomegaly without evidence biliary obstruction and some degree of bile gastric reflux. CTA showed fatty liver. MRCP showed fatty liver as well and was otherwise unremarkable. Immunology and serology and IGG4 negative. She was seen in the office yesterday and overall had been feeling better since taking Creon, and EUS scheduled for 10/31, went to work, and then had worsening of RUQ pain. She said she took 5-6 hydrocodone yesterday and still had pain , took Zofran and didn't help the nausea. She says her pain is finally under control after administration Dilaudid. She had EGD and colonoscopy in 2013 and had ulcers at that time. She used to use NSAIDs but stopped after told she had gastric ulcer, She admits to recent daily use of meloxicam since last summer not aware of side effects. Labs revealed elevated lipase which has normalized since, LFTs have been elevated, seem to be worse than her last visit. She denies ETOH. She reports some fever and chills, no vomiting, hematochezia, she has intermittent diarrhea. PFSH Past Medical History asthma,anxiety depression,diabetes,hypertension,GERD,hx ulcer pancreatitis 3 times since 2012 Past Surgical History gallbladder,hysterectomy,appendix,ex lap Coded Allergies: Morphine (Verified Allergy, Intermediate, HIVES, 10/13/16) Sulfa (Verified Allergy, Intermediate, HIVES, 10/13/16) Pyridium (Verified Adverse Reaction, Intermediate, VOMITING, 10/13/16) Medications Current Medications Medications (Trade) Dose Ordered Sig/Toya Route Start Time Stop Time Status Last Admin (Proair Hfa Inh) 1 puff Q4H PRN INH 10/13/16 22:00 (Symbicort 160-4.5 Inh) 1 puff Q12HR INH 10/14/16 09:00 (Flexeril) 10 mg TID PO 10/14/16 09:00 10/14/16 13:14 (Bentyl) 10 mg TID PRN PO 10/13/16 22:00 (Breo Ellipta 100-25 Inh) 1 puff DAILY INH 10/14/16 09:00 (Prinivil) 5 mg DAILY PO 10/14/16 09:00 (Lopressor) 25 mg BID PO 10/14/16 09:00 10/14/16 09:08 (Creon 24-76-120) 2 cap TID PO 10/14/16 09:00 Pantoprazole Sodium 40 mg 40 mg Q24H IV PUSH 10/13/16 22:00 10/14/16 01:43 (1/2 NS 1000 ml Inj) 1,000 ml @ 75 mls/hr [id number] IV 10/13/16 21:56 10/14/16 01:43 (NS Flush) 2 ml UNSCH PRN FLUSH 10/13/16 22:00 (NS Flush) 2 ml BID FLUSH 10/14/16 09:00 10/14/16 09:07 (Zofran Inj) 4 mg Q6H PRN IVP 10/13/16 22:00 10/14/16 11:13 (Dilaudid Pf Inj) 0.5 mg Q3H PRN IV 10/13/16 22:00 10/14/16 13:15 (Narcan Inj) 0.4 mg UNSCH PRN IV 10/13/16 22:00 Patient Own Medication PT OWN MED: LISDEXAMFETAMINE DIMESYLATE 3... DAILY PO 10/14/16 09:00 Hold (Pill Splitter) 1 ea UNSCH PRN OTHER 10/13/16 22:15 (Mylicon Chew) 80 mg Q8HR PRN CHEW 10/13/16 23:30 (CeleXA) 60 mg HS PO 10/14/16 21:00 (Desyrel) 150 mg HS PO 10/14/16 21:00 Family History no family hx pancreatitis, colon ca, gastric ca Social History Denies alcohol Denies smoking Denies illicit drugs Review of Systems Constitutional: COMPLAINS OF: Fever, Chills Endocrine: DENIES: Polyuria Eyes: DENIES: Double Vision Ears, nose, mouth, throat: DENIES: Hoarseness Respiratory: DENIES: Shortness of breath Cardiovascular: DENIES: Lower Extremity Edema Gastrointestinal: COMPLAINS OF: Abdominal pain, Diarrhea, Nausea, DENIES: Black stools, Bloody stools, Constipation, Vomiting, Difficulty Swallowing, Anorexia, Odynophagia, Swelling of Abdomen, Heartburn, Hematemesis Genitourinary: DENIES: Hematuria Musculoskeletal: DENIES: Back pain Integumentary: DENIES: Jaundice Hematologic/lymphatic: DENIES: Bruising Immunologic/allergic: DENIES: Eczema Neurologic: DENIES: Abnormal gait Psychiatric: COMPLAINS OF: Anxiety GI Exam Vitals I&O Vital Signs Date Time Temp Pulse Resp B/P Pulse Ox O2 Delivery O2 Flow Rate FiO2 10/14/16 12:05 97.8 72 18 148/72 95 10/14/16 08:04 97.6 63 18 100/54 94 10/14/16 02:56 18 10/14/16 00:43 97.9 83 18 141/68 96 10/14/16 00:20 75 16 109/55 98 10/13/16 16:36 97.9 82 20 155/85 97 Room Air Laboratory Test 10/13/16 10/14/16 20:00 07:15 White Blood Count 9.2 TH/MM3 5.4 TH/MM3 Red Blood Count 4.85 MIL/MM3 4.37 MIL/MM3 Hemoglobin 14.8 GM/DL 13.4 GM/DL Hematocrit 43.0 % 39.0 % Mean Corpuscular Volume 88.7 FL 89.3 FL Mean Corpuscular Hemoglobin 30.6 PG 30.8 PG Mean Corpuscular Hemoglobin 34.5 % 34.5 % Concent Red Cell Distribution Width 12.9 % 12.9 % Platelet Count 227 TH/MM3 183 TH/MM3 Mean Platelet Volume 8.7 FL 9.2 FL Neutrophils (%) (Auto) 45.4 % 45.3 % Lymphocytes (%) (Auto) 45.3 % 44.6 % Monocytes (%) (Auto) 6.4 % 7.7 % Eosinophils (%) (Auto) 1.9 % 1.8 % Basophils (%) (Auto) 1.0 % 0.6 % Neutrophils # (Auto) 4.2 TH/MM3 2.4 TH/MM3 Lymphocytes # (Auto) 4.2 TH/MM3 2.4 TH/MM3 Monocytes # (Auto) 0.6 TH/MM3 0.4 TH/MM3 Eosinophils # (Auto) 0.2 TH/MM3 0.1 TH/MM3 Basophils # (Auto) 0.1 TH/MM3 0.0 TH/MM3 CBC Comment DIFF FINAL DIFF FINAL Differential Comment Urine Color LIGHT-YELLOW Urine Turbidity CLEAR Urine pH 6.0 Urine Specific [place] 1.007 Urine Protein NEG mg/dL Urine Glucose (UA) 1000 mg/dL Urine Ketones NEG mg/dL Urine Occult Blood NEG Urine Nitrite NEG Urine Bilirubin NEG Urine Urobilinogen LESS THAN 2.0 MG/DL Urine Leukocyte Esterase NEG Urine RBC LESS THAN 1 /hpf Urine WBC 1 /hpf Urine Squamous Epithelial 1 /hpf Cells Microscopic Urinalysis Comment CULT NOT INDICATED Sodium Level 137 MEQ/L 141 MEQ/L Potassium Level 3.8 MEQ/L 3.7 MEQ/L Chloride Level 101 MEQ/L 105 MEQ/L Carbon Dioxide Level 28.2 MEQ/L 29.6 MEQ/L Anion Gap 8 MEQ/L 6 MEQ/L Blood Urea Nitrogen 11 MG/DL 10 MG/DL Creatinine 0.75 MG/DL 0.70 MG/DL Estimat Glomerular Filtration 84 ML/MIN 91 ML/MIN Rate Random Glucose 102 MG/DL 107 MG/DL Calcium Level 9.0 MG/DL 8.2 MG/DL Total Bilirubin 0.5 MG/DL 0.6 MG/DL Aspartate Amino Transf 26 U/L 261 U/L (AST/SGOT) Alanine Aminotransferase 50 U/L 228 U/L (ALT/SGPT) Alkaline Phosphatase 62 U/L 77 U/L Total Protein 7.5 GM/DL 6.3 GM/DL Albumin 4.4 GM/DL 3.6 GM/DL Lipase 619 U/L 325 U/L Physical Examination HEENT: Pupils round and reactive to light; normocephalic; atraumatic; no jaundice. Throat is clear. NECK: Neck is supple, no JVD, no lymphadenopathy. CHEST: Chest is clear to auscultation and percussion. CARDIAC: Regular rate and rhythm with no murmur gallop or rubs. ABDOMEN: Soft, nondistended, RUQ TTP; no hepatosplenomegaly; bowel sounds are present in all four quadrants. EXTREMITIES: No clubbing, cyanosis, or edema. SKIN: Normal; no rash; no jaundice. PRODUCTION EDITOR: No focal deficits; alert and oriented times three. Assessment and Plan Plan - Recurrent pancreatitis- Patient had frequent pancreatitis attacks since 2012 of unknown etiology, she is scheduled for EUS on 10/31, she is s/p cholecystectomy, denies alcohol. extensive work up at recent admission (09/29/16- 10/03/16) including HIDA scan which indicated hepatomegaly without evidence biliary obstruction and some degree of bile gastric reflux. CTA showed fatty liver. MRCP showed fatty liver as well and was otherwise unremarkable, immunology and serology negative, IGG4 negative. She has been taking Creon, clear liquids, dicyclomine and did ok until Thursday when she started having worsening of pain. She has been taking hydrocodone for pain and Zofran for nausea which has not helped. She has hx gastric ulcers and has been taking meloxicam on a daily basis since last summer. -Elevated LFTs. worse than last visit. AST 261, ALT 228, the rest are WNL. She has been taking hydrocodone for pain, she took 5-6 of them yesterday. Recent work up negative except fatty liver. This could be drug induced or PUD - Hx of gastric ulcers- she has been taking Meloxicam since last summer - Depression, DM per attending PLAN -clear liquids -EGD tomorrow -NPO after midnight -obtain consents -PPI -rck LFTs, lipase in a.m. This pt was seen examined by myself and Dr. Hyde and this note is written on his behalf. Ralph Bacon Oct 14, 2016 16:57
[2016-10-14 20:52] VITALS: BP 122/67; PULSE 83; RESP 18; TEMP 98.2; O2SAT 95
[2016-10-14] MEDS ORDERED: traZODone HCL 50 MG TAB PO SCH (21:00)
[2016-10-14] MEDS: traZODone HCL 50 MG TAB PO SCH (22:26)
[2016-10-14] MEDS: CITALOPRAM HYDROBROMIDE 40 MG TAB PO SCH (22:26)
[2016-10-15 05:47] LABS: ALT (GPT) 270 U/L (10-53); ANION GAP 9 MEQ/L (5-15); AST (GOT) 205 U/L (15-37); BLOOD UREA NITROGEN 7 MG/DL (7-18); CHLORIDE 106 MEQ/L (98-107); GLOMERULAR FILTRATION RATE 111 ML/MIN (>89); POTASSIUM 3.6 MEQ/L (3.5-5.1); SODIUM (NA) 142 MEQ/L (136-145)
[2016-10-15 05:49] LABS: ALKALINE PHOSPHATASE 93 U/L (45-117); TOTAL BILIRUBIN ADULT 0.6 MG/DL (0.2-1.0)
[2016-10-15 06:27] VITALS: BP 109/54; PULSE 62; RESP 18; TEMP 98.2; O2SAT 95
[2016-10-15] MEDS: INSULIN ASPART SUPPLEMENTAL SCALE SQ SCH ×4 (07:00→21:42)
[2016-10-15 08:15] VITALS: BP 109/54; PULSE 62; RESP 18; TEMP 98.2; O2SAT 95
[2016-10-15] MEDS ORDERED: PROPOFOL 200 MG/20 ML AMP IV ONE (08:41)
[2016-10-15] MEDS: SODIUM CHLORIDE 0.9% FLUSH 5 ML FLUSH FLUSH SCH ×2 (09:00→21:00)
[2016-10-15] MEDS: BUDESONIDE-FORMOTEROL 160/4.5 MCG INHALER INH SCH ×2 (09:00→21:00)
[2016-10-15] MEDS: FLUTICASONE 100 MCG/VILANTEROL 25 MCG INHALER INH SCH (09:00)
[2016-10-15] MEDS ORDERED: RESP: ALBUTEROL 2.5 MG/3 ML NEB (SCH) INH ONE (09:00)
[2016-10-15] MEDS: SODIUM CHLOR 0.45% 1000 ML INJ 1,000 ML IV SCH (09:54)
[2016-10-15] MEDS: METOPROLOL TARTRATE 25 MG TAB PO SCH ×2 (09:54→21:37)
[2016-10-15] MEDS: LIPASE/PROTEASE/AMYLASE (24,000/76,000/120,000) CAP PO SCH ×3 (09:54→16:47)
[2016-10-15] MEDS: LISINOPRIL 5 MG TAB PO SCH (09:55)
[2016-10-15] MEDS: CYCLOBENZAPRINE HCL 10 MG TAB PO SCH ×3 (09:55→16:47)
--- NOTE | 2016-10-15 11:25 | HHI.PR ---
Subjective Remarks s/p egd. seems to tolerate liquid Objective Vitals heart reg lung cta abd s/nt ext no edema Vital Signs Date Time Temp Pulse Resp B/P Pulse Ox O2 Delivery O2 Flow Rate FiO2 10/15/16 09:03 65 18 135/71 98 10/15/16 08:57 65 18 143/77 100 10/15/16 08:51 99.0 87 20 148/73 100 10/15/16 08:15 98.2 62 18 109/54 95 10/15/16 06:27 98.2 62 18 109/54 95 10/14/16 20:52 98.2 83 18 122/67 95 10/14/16 16:10 97.9 71 18 144/82 98 10/14/16 12:05 97.8 72 18 148/72 95 Result Diagram: 10/14/16 0715 10/15/16 0441 A/P Problem List: (1) Pancreatitis Status: Acute Plan: - Pt has had recurrent pancreatitis of unclear etiology - She has had about 5 episodes of pancreatitis diagnosed since 11/2012. 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 She denies any alcohol use at all. Pt had her GB removed previously. - Pt is following with GI outpt and is planned for EUS on 10/31/16 - egd 10/15...gastritis GI following for pancreatitis and elevation of lft. advance diet. d/c dilaudid d/c later if tolerating diet and pain control. -no nsaids. - ppi (2) DM2 (diabetes mellitus, type 2) Status: Chronic Plan: - NovoLog SSI - Accu checks (3) Hypertension Status: Chronic Plan: - Continue home meds Campos Matos MD Oct 15, 2016 11:25
[2016-10-15] MEDS ORDERED: POLYETHYLENE GLYCOL 17 GM PKG PO ONE (11:30)
[2016-10-15] MEDS ORDERED: ONDANSETRON HCL 4 MG/2 ML VIAL IV PUSH ONE (12:00)
[2016-10-15 12:52] VITALS: BP 127/76; PULSE 72; RESP 20; TEMP 98.7; O2SAT 97
[2016-10-15] MEDS: SIMETHICONE 125 MG CHEWABLE TAB PO SCH ×2 (14:00→21:37)
--- NOTE | 2016-10-15 14:39 | HHI.DCPOC ---
Discharge Care Plan Diagnosis: (1) Pancreatitis (2) Gastritis (3) LFT elevation (4) DM2 (diabetes mellitus, type 2) (5) Hypertension (6) Major depression Goals to Promote Your Health * To prevent worsening of your condition and complications * To maintain your health at the optimal level Directions to Meet Your Goals Take your medications as prescribed Follow your dietary instruction Follow activity as directed Keep your appointments as scheduled Take your immunizations and boosters as scheduled If your symptoms worsen call your PCP, if no PCP go to Urgent Care Center or Emergency Room Smoking is Dangerous to Your Health. Avoid second hand smoke Call the 24-hour hour crisis hotline for domestic abuse at Campos Matos MD Oct 15, 2016 14:39
[2016-10-15 16:32] VITALS: BP 114/65; PULSE 67; RESP 20; TEMP 98.5; O2SAT 97
[2016-10-15] MEDS: ONDANSETRON HCL 4 MG/2 ML VIAL IVP PRN (16:47)
--- NOTE | 2016-10-15 18:48 | HHI.GIFU ---
Subjective Remarks still C/O abdominal discomfort and pain. no nausea or vomiting Objective Vitals I&O Vital Signs Date Time Temp Pulse Resp B/P Pulse Ox O2 Delivery O2 Flow Rate FiO2 10/15/16 16:32 98.5 67 20 114/65 97 10/15/16 12:52 98.7 72 20 127/76 97 10/15/16 09:03 65 18 135/71 98 10/15/16 08:57 65 18 143/77 100 10/15/16 08:51 99.0 87 20 148/73 100 10/15/16 08:15 98.2 62 18 109/54 95 10/15/16 06:27 98.2 62 18 109/54 95 10/14/16 20:52 98.2 83 18 122/67 95 I/O 10/14/16 10/14/16 10/14/16 10/15/16 10/15/16 10/15/16 07:00 15:00 23:00 07:00 15:00 23:00 Intake Total 600 ml Balance 600 ml Intake IV Total 600 ml # Voids 1 4 Laboratory Laboratory Tests Test 10/15/16 04:41 Sodium Level 142 Potassium Level 3.6 Chloride Level 106 Carbon Dioxide Level 27.0 Anion Gap 9 Blood Urea Nitrogen 7 Creatinine 0.59 Estimat Glomerular Filtration 111 Rate Random Glucose 121 Calcium Level 8.4 Total Bilirubin 0.6 Aspartate Amino Transf 205 (AST/SGOT) Alanine Aminotransferase 270 (ALT/SGPT) Alkaline Phosphatase 93 Total Protein 6.4 Albumin 3.6 Lipase 276 Physical Exam HEENT: Pupils round and reactive to light; normocephalic; atraumatic; no jaundice. Throat is clear. NECK: Neck is supple, no JVD, no lymphadenopathy. CHEST: Chest is clear to auscultation and percussion. CARDIAC: Regular rate and rhythm with no murmur gallop or rubs. ABDOMEN: Soft, nondistended, moderate tenderness in RUQ; no hepatosplenomegaly ; bowel sounds are present in all four quadrants. EXTREMITIES: No clubbing, cyanosis, or edema. SKIN: Normal; no rash; no jaundice. UNIFORM ATTENDANT: No focal deficits; alert and oriented times three. Assessment and Plan Plan - Recurrent pancreatitis- Patient had frequent pancreatitis attacks since 2012 of unknown etiology, she is scheduled for EUS on 10/31, she is s/p cholecystectomy, denies alcohol. extensive work up at recent admission (09/29/16- 10/03/16) including HIDA scan which indicated hepatomegaly without evidence biliary obstruction and some degree of bile gastric reflux. CTA showed fatty liver. MRCP showed fatty liver as well and was otherwise unremarkable, immunology and serology negative, IGG4 negative. She has been taking Creon, clear liquids, dicyclomine and did ok until Thursday when she started having worsening of pain. She has been taking hydrocodone for pain and Zofran for nausea which has not helped. She has hx gastric ulcers and has been taking meloxicam on a daily basis since last summer. -Elevated LFTs. worse than last visit. AST 261, ALT 228, the rest are WNL. She has been taking hydrocodone for pain, she took 5-6 of them yesterday. Recent work up negative except fatty liver. This could be drug induced or PUD - Hx of gastric ulcers- she has been taking Meloxicam since last summer - Depression, DM per attending 09-17-16 pancreatitis lipase better but LFTs elevated, so if LFTs tomorrow we will do work up to r/o reason for that, we will check liver US. EGD showed gastritis Bx done PLAN -full liquids diet -liver US -PPI -rck LFTs, Neelima Hyde MD Oct 15, 2016 18:48
[2016-10-15] MEDS: traZODone HCL 50 MG TAB PO SCH (21:37)
[2016-10-15] MEDS: CITALOPRAM HYDROBROMIDE 40 MG TAB PO SCH (21:37)
[2016-10-15] MEDS: PANTOPRAZOLE SODIUM 40 MG VIAL IV PUSH SCH (21:38)
== END 2016-10-15 23:59 | disposition home or self-care (01) ==
LOC: NEPC 16:34 → NEDA 21:37 → NEPGCP 10-14 00:40
PROVIDERS: ADMIT Hospitalist; ATTEND Hospitalist
DX: K29.70 Gastritis, unspecified, without bleeding (principal); R79.89 Other specified abnormal findings of blood chemistry; K21.9 Gastro-esophageal reflux disease without esophagitis; K76.0 Fatty (change of) liver, not elsewhere classified; K86.1 Other chronic pancreatitis; J45.909 Unspecified asthma, uncomplicated; I10 Essential (primary) hypertension; E78.00 Pure hypercholesterolemia, unspecified; E11.9 Type 2 diabetes mellitus without complications; Z79.84 Long term (current) use of oral hypoglycemic drugs; Z87.11 Personal history of peptic ulcer disease
CPT/HCPCS: 00740; 43239; 80053; 81001; 82948; 83690; 85025; 88305; 99284; C9113; G0378; J1170; J1815; J2405; J7030; J7613; 88312

== ENCOUNTER 2017-03-18 18:13 | Emergency (ER) | payer SELFPAY ==
[~2017-03-18] VITALS: Ht 162.6 cm; Wt 95.6 kg
[~2017-03-18 18:13] MED LIST changes: -MOBI7.5T PO
[2017-03-18 18:26] VITALS: BP 139/60; PULSE 88; RESP 20; TEMP 98.3; O2SAT 95
[2017-03-18] MEDS ORDERED: LISD70 PO (19:26)
[2017-03-18] MEDS ORDERED: LISI-515 PO (19:29)
[2017-03-18] MEDS ORDERED: TRAZ1TAB45 PO (19:30)
[2017-03-18] MEDS ORDERED: LANTUS2P (19:30)
[2017-03-18] MEDS ORDERED: CELE200C PO (19:31)
[2017-03-18] MEDS ORDERED: SODIUM CHLOR 0.9% 1000 ML INJ 1,000 ML IV SCH (19:31)
[2017-03-18] MEDS ORDERED: KETOROLAC TROMETHAMINE 30 MG/ML (IVP) VIAL IVP ONE (19:45)
[2017-03-18] MEDS ORDERED: SODIUM CHLORIDE 0.9% FLUSH 10 ML FLUSH IV FLUSH PRN (19:45)
--- NOTE | 2017-03-18 19:47 | PD ---
HPI Chief Complaint: Flank/Kidney Pain Time Seen by Provider: 19:14 Travel History International Travel<30 days: No Contact w/Intl Traveler<30days: No Traveled to known affect area: No History of Present Illness HPI Patient is a 47) suprapubic abdominal pain as well as dysuria for the past week. Patient states she saw another physician and started on Bactrim 3 days ago. She has despite this very weak and feeling like she was dehydrated earlier today. She states she was working fairly aggressive the past and let herself dehydrated. Patient also states she's been taking Azo at home. Denies any objective fevers denies any vomiting but does endorse some mild nausea. Denies any vaginal bleeding vaginal discharge diarrhea or constipation. Denies a history of kidney stones denies any flank pain. She states one time in the past and admitted for a kidney infection PFS Past Medical History Arthritis: No Asthma: Yes Anxiety: Yes Depression: Yes Heart Rhythm Problems: No Cancer: No Cardiac Catheterization: No Cardiovascular Problems: Yes High Cholesterol: Yes (at one time, pt takes fish oil) Chest Pain: No Congestive Heart Failure: No COPD: No Diabetes: Yes Diminished Hearing: No Endocrine: Yes Gastrointestinal Disorders: Yes GERD: Yes Genitourinary: No Hiatal Hernia: No Hypertension: Yes Immune Disorder: No Implanted Vascular Access Dvce: No Kidney Stones: No Musculoskeletal: Yes Neurologic: No Psychiatric: Yes Reproductive: Yes (HYSTERECTOMY) Respiratory: Yes Immunizations Current: Yes Migraines: No Pancreatitis: Yes Sleep Apnea: No Thyroid Disease: No Ulcer: Yes ?: Not : 1 Para: 1 Past Surgical History Abdominal Surgery: Yes (ENDOMETRIAL TISSUE REMOVED 2002) Appendectomy: Yes Cardiac Surgery: No Section: Yes (1998) Cholecystectomy: Yes Coronary Artery Bypass Graft: No Ear Surgery: No Endocrine Surgery: No Eye Surgery: No Genitourinary Surgery: No Gynecologic Surgery: Yes (EXPLORATORY LAP 1990, EXPL LAP C CAUTERIZATION 1997 ) Hysterectomy: Yes Insulin Pump: No Joint Replacement: No Oral Surgery: No Pacemaker: No Thoracic Surgery: No Other Surgery: Yes (EXP LAP, EXP ABD SURGERY) Social History Alcohol Use: No Tobacco Use: No Substance Use: No Allergies-Medications (Allergen,Severity, Reaction): Coded Allergies: Morphine (Verified Allergy, Intermediate, HIVES, 03/18/17) Sulfa (Verified Allergy, Intermediate, HIVES, 03/18/17) Reported Meds & Prescriptions Reported Meds & Active Scripts Active Keflex (Cephalexin) 500 Mg Capsule 500 Mg PO QID 5 Days Creon (Amylase/Lipase/Protease) 24,000-76,000-120,000 Units Cap 2 Cap PO TID Bentyl (Dicyclomine HCl) 10 Mg Cap 10 Mg PO TID PRN Pantoprazole (Pantoprazole Sodium) 40 Mg Tab 40 Mg PO DAILY Metformin (Metformin HCl) 1,000 Mg Tab 1,000 Mg PO BIDPC With meals Reported Celebrex (Celecoxib) 200 Mg Cap 200 Mg PO DAILY Lantus Inj (Insulin Glargine) 100 Unit/Ml Inj 10 DAILY Trazodone (Trazodone HCl) 150 Mg Tablet 150 Mg PO HS Lisinopril 20 Mg Tab 20 Mg PO DAILY Vyvanse (Lisdexamfetamine Dimesylate) 70 Mg Cap 75 Mg PO DAILY Gnp Melatonin (Melatonin) 3 Mg Tab 1 Tab PO DAILY Fish Oil (Mesa-3 Fatty Acids) 500 Mg Cap 1 Cap PO DAILY Celexa (Citalopram Hydrobromide) 40 Mg Tab 60 Mg PO DAILY Flexeril (Cyclobenzaprine HCl) 10 Mg Tab 10 Mg PO TID Hydrocodone-Acetaminophen 7.5-325 mg Tab 1 Tab PO DAILY PRN Breo Ellipta Inh (Fluticasone/Vilanterol) 100-25 Mcg/Act Inh 1 Puff INH DAILY Use daily at the same time. Proventil Hfa 6.7 GM Inh (Albuterol Sulfate) 90 Mcg/Act Aer 1 Puff INH Q4H PRN Metoprolol Tartrate 25 Mg Tab 25 Mg PO BID Review of Systems Except as stated in HPI: all other systems reviewed are Neg Physical Exam Narrative GENERAL: Well-developed well-nourished, overweight no obvious distress per SKIN: Focused skin assessment warm/dry. HEAD: Atraumatic. Normocephalic. EYES: Pupils equal and round. No scleral icterus. No injection or drainage. ENT: No nasal bleeding or discharge. Mucous membranes pink and moist. NECK: Trachea midline. No JVD. CARDIOVASCULAR: Regular rate and rhythm. No murmur appreciated. RESPIRATORY: No accessory muscle use. Clear to auscultation. Breath sounds equal bilaterally. GASTROINTESTINAL: Abdomen soft, non-tender, nondistended. Hepatic and splenic margins not palpable. No CVA tenderness, no rebound no percussive tenderness, normal active bowel sounds. MUSCULOSKELETAL: No obvious deformities. No clubbing. No cyanosis. No edema. NEUROLOGICAL: Awake and alert. No obvious cranial nerve deficits. Motor grossly within normal limits. Normal speech. PSYCHIATRIC: Appropriate mood and affect; insight and judgment normal. Data Data Last Documented VS Vital Signs Date Time Temp Pulse Resp B/P Pulse Ox O2 Delivery O2 Flow Rate FiO2 03/18/17 21:36 85 18 140/66 97 03/18/17 20:33 Room Air 03/18/17 18:26 98.3 Orders Beta Hcg (Quant/Titer) (03/18/17 19:31) Complete Blood Count With Diff (03/18/17 19:31) Comprehensive Metabolic Panel (03/18/17 19:31) Lipase (03/18/17 19:31) Urinalysis - C+S If Indicated (03/18/17 19:31) Iv Access Insert/Monitor (03/18/17 19:31) Ecg Monitoring (03/18/17 19:31) Oximetry (03/18/17 19:31) Sodium Chlor 0.9% 1000 Ml Inj (Ns 1000 M (03/18/17 19:31) Sodium Chloride 0.9% Flush (Ns Flush) (03/18/17 19:45) Ketorolac Inj (Toradol Inj) (03/18/17 19:45) Creatine Kinase (Cpk) (03/18/17 19:31) Urine Culture (03/18/17 20:30) Cephalexin (Keflex) (03/18/17 21:30) Labs Laboratory Tests Test 03/18/17 20:30 White Blood Count 8.3 TH/MM3 Red Blood Count 4.69 MIL/MM3 Hemoglobin 14.1 GM/DL Hematocrit 42.0 % Mean Corpuscular Volume 89.5 FL Mean Corpuscular Hemoglobin 30.1 PG Mean Corpuscular Hemoglobin 33.6 % Concent Red Cell Distribution Width 12.5 % Platelet Count 237 TH/MM3 Mean Platelet Volume 8.5 FL Neutrophils (%) (Auto) 48.9 % Lymphocytes (%) (Auto) 41.9 % Monocytes (%) (Auto) 6.3 % Eosinophils (%) (Auto) 2.3 % Basophils (%) (Auto) 0.6 % Neutrophils # (Auto) 4.0 TH/MM3 Lymphocytes # (Auto) 3.5 TH/MM3 Monocytes # (Auto) 0.5 TH/MM3 Eosinophils # (Auto) 0.2 TH/MM3 Basophils # (Auto) 0.1 TH/MM3 CBC Comment DIFF FINAL Differential Comment Urine Color ORANGE Urine Turbidity CLEAR Urine pH 5.5 Urine Specific [place] 1.010 Urine Protein TRACE mg/dL Urine Glucose (UA) 500 mg/dL Urine Ketones NEG mg/dL Urine Occult Blood NEG Urine Nitrite POS Urine Bilirubin NEG Urine Leukocyte Esterase NEG Urine RBC 0-2 /hpf Urine WBC 3-5 /hpf Urine WBC Clumps FEW Urine Squamous Epithelial 0-5 /hpf Cells Urine Bacteria FEW /hpf Microscopic Urinalysis Comment CULTURE INDICATED Sodium Level 135 MEQ/L Potassium Level 4.1 MEQ/L Chloride Level 100 MEQ/L Carbon Dioxide Level 27.5 MEQ/L Anion Gap 8 MEQ/L Blood Urea Nitrogen 7 MG/DL Creatinine 0.67 MG/DL Estimat Glomerular Filtration 95 ML/MIN Rate Random Glucose 232 MG/DL Calcium Level 8.9 MG/DL Total Bilirubin 0.4 MG/DL Aspartate Amino Transf 29 U/L (AST/SGOT) Alanine Aminotransferase 48 U/L (ALT/SGPT) Alkaline Phosphatase 82 U/L Total Creatine Kinase 54 U/L Total Protein 7.3 GM/DL Albumin 3.9 GM/DL Lipase 1434 U/L Human Chorionic Gonadotropin, 3 MIU/ML Quant MDM Medical Decision Making Medical Screen Exam Complete: Yes Emergency Medical Condition: Yes Differential Diagnosis UTI, pyelonephritis unlikely, sepsis unlikely, pancreatitis, gastritis, gastric enteritis. Narrative Course Patient roomed in the emergency department, appears well in no obvious distress. Given Toradol and had complete relief for symptoms. Patient does have a mild elevation in lipase and does have nitrate positive urine. Discussed with her continuing Macrobid until finished and will add Keflex. On the subject of her elevation of lipase patient is not having any epigastric pain is been tolerating by mouth fluids. She was told she has chronic pancreatitis and review of her records shows that she's been here multiple times for her pancreas. She is tolerating by mouth fluids emerge department at that she can go home. Her abdomen is benign. This was discussed with her and she is agreeable. Discussed symptomatic management returned ED criteria as well as follow-up the primary care physician. Diagnosis Primary Impression: UTI (urinary tract infection) Additional Impression: Elevated lipase Med/Other Pt SpecificInfo: Prescription(s) given Scripts Cephalexin (Keflex)500 Mg [id number] Mg PO QID 5 Days Ref 0 Prov:Bonifacio Alcaraz MD 03/18/17 Disposition: 01 DISCHARGE HOME Condition: Stable Bonifacio Alcaraz MD Mar 18, 2017 19:47
[2017-03-18 20:20] VITALS: O2SAT 95
[2017-03-18 20:33] VITALS: PULSE 83; RESP 16; O2SAT 98
[2017-03-18 20:43] LABS: BASOPHIL # 0.1 TH/MM3 (0-0.2); BASOPHIL % 0.6 % (0.0-2.0); EOSINOPHIL # 0.2 TH/MM3 (0-0.4); EOSINOPHIL % 2.3 % (0.0-4.0); HEMO FLAGS DIFF FINAL; LYMPH % 41.9 % (9.0-44.0); LYMPHOCYTE # 3.5 TH/MM3 (1.0-4.8); MEAN CELL VOLUME 89.5 FL (80.0-100.0); MEAN CORPUSCULAR HEMOGLOBIN 30.1 PG (27.0-34.0); MEAN CORPUSCULAR HGB CONC 33.6 % (32.0-36.0); MONO % 6.3 % (0.0-8.0); NEUT % 48.9 % (16.0-70.0); PLATELET COUNT 237 TH/MM3 (150-450); RED BLOOD COUNT 4.69 MIL/MM3 (4.00-5.30); RED CELL DISTRIBUTION WIDTH 12.5 % (11.6-17.2); WHITE BLOOD COUNT 8.3 TH/MM3 (4.0-11.0)
[2017-03-18 20:46] LABS: BLOOD, URINE NEG (NEG); GLUCOSE,URINE 500 mg/dL (NEG); KETONE, URINE NEG (NEG); PH, URINE 5.5 (5.0-8.5)
[2017-03-18 20:50] LABS: CHLORIDE 100 MEQ/L (98-107); NITRITE,URINE POS (NEG); POTASSIUM 4.1 MEQ/L (3.5-5.1); SODIUM (NA) 135 MEQ/L (136-145)
[2017-03-18 20:51] LABS: URINE COLOR ORANGE (YELLW/STRAW)
[2017-03-18 20:52] LABS: BACTERIA, URINE FEW /hpf; COMMENT (UR) CULTURE INDICATED; CULTURE IF INDICATED CULTURE INDICATED; RBC, URINE 0-2 /hpf (0-3); SQUAMOUS EPITHELIAL CELL URINE 0-5 /hpf (0-5)
[2017-03-18 20:54] LABS: ANION GAP 8 MEQ/L (5-15); BICARBONATE 27.5 MEQ/L (21.0-32.0); BLOOD UREA NITROGEN 7 MG/DL (7-18)
[2017-03-18 20:57] LABS: ALT (GPT) 48 U/L (10-53); AST (GOT) 29 U/L (15-37); GLOMERULAR FILTRATION RATE 95 ML/MIN (>89)
[2017-03-18 20:59] LABS: TOTAL BILIRUBIN ADULT 0.4 MG/DL (0.2-1.0)
[2017-03-18 21:00] LABS: ALKALINE PHOSPHATASE 82 U/L (45-117)
[2017-03-18 21:01] LABS: CREATINE KINASE 54 U/L (26-192)
[2017-03-18 21:02] LABS: BETA HCG QUANT 3 MIU/ML (0-5)
[2017-03-18] MEDS ORDERED: CEPH-460 PO (21:25)
[2017-03-18] MEDS ORDERED: CEPHALEXIN MONOHYDRATE 500 MG CAP PO ONE (21:30)
[2017-03-18 21:32] VITALS: RESP 18
[2017-03-18 21:36] VITALS: BP 140/66
== END 2017-03-18 21:45 | disposition home or self-care (01) ==
LOC: PHED 18:13
DX: N39.0 Urinary tract infection, site not specified (principal); R79.89 Other specified abnormal findings of blood chemistry; R53.1 Weakness; R11.0 Nausea; E11.9 Type 2 diabetes mellitus without complications; I10 Essential (primary) hypertension; E78.00 Pure hypercholesterolemia, unspecified; Z79.4 Long term (current) use of insulin; Z87.09 Personal history of other diseases of the respiratory system; Z86.59 Personal history of other mental and behavioral disorders; Z86.79 Personal history of other diseases of the circulatory system; Z87.19 Personal history of other diseases of the digestive system; Z87.39 Personal history of other diseases of the musculoskeletal system and connective tissue
CPT/HCPCS: 80053; 81001; 82550; 83690; 84702; 85025; 87086; 96361; 96374; 99284; J1885; J7030

== ENCOUNTER 2017-09-30 14:38 | Emergency (ER) | payer BC ==
[~2017-09-30] VITALS: Ht 162.6 cm; Wt 95.5 kg
[~2017-09-30 14:38] MED LIST changes: +CELE200C PO; +CEPH-460 PO; -CINN500C PO; +CYCL10TA PO; -CYCL1TAB29 PO; -DAPA1TAB3 PO; -GING500C PO; -GLUC500C5 PO; -GNP3TAB PO; -HYDR-3516 PO; +LANTUS2P; +LISD70 PO; +LISI-515 PO; -LISI-519 PO; +MELA1TAB33 PO; -SYMB160A INH; -TRAZ150T75 PO; +TRAZ1TAB14 PO; -VYVA30CA5 PO
[2017-09-30 14:47] VITALS: BP 136/79; PULSE 78; RESP 16; TEMP 99.5; O2SAT 95
--- NOTE | 2017-09-30 17:12 | PD ---
HPI Chief Complaint: Laceration/Skin Injury Time Seen by Provider: 17:07 Travel History International Travel<30 days: No Contact w/Intl Traveler<30days: No Traveled to known affect area: No History of Present Illness HPI Patient comes to the emergency department complaining of laceration to the medial aspect going into the plantar surface of her left foot that occurred around 11:00 this morning when she accidentally stepped on a broken glass while she was barefoot. Patient reports that she cleaned and applied pressure however every time she wants that she tries to walk on it, then it starts bleeding again so she decided to come to the emergency department. Patient reports her tetanus shot is up-to-date. Patient reports a pressure dressing has alleviated pain. Patient reports burning sensation inside the laceration without radiation. Not having covered makes the pain worse. Denies any numbness or tingling. PFSH Past Medical History Arthritis: No Asthma: Yes Anxiety: Yes Depression: Yes Heart Rhythm Problems: No Cancer: No Cardiac Catheterization: No Cardiovascular Problems: Yes High Cholesterol: Yes (at one time, pt takes fish oil) Chest Pain: No Congestive Heart Failure: No COPD: No Diabetes: Yes Patient Takes Glucophage: Yes (TODAY) Diminished Hearing: No Endocrine: Yes Gastrointestinal Disorders: Yes (PAIN TO RIGHT UPPER QUAD, WORSE THIS TIME) GERD: Yes Genitourinary: No Hiatal Hernia: No Hypertension: Yes Immune Disorder: No Implanted Vascular Access Dvce: No Kidney Stones: No Musculoskeletal: Yes Neurologic: No Psychiatric: Yes Reproductive: Yes (HYSTERECTOMY) Respiratory: Yes Immunizations Current: Yes Migraines: No Pancreatitis: Yes Sleep Apnea: No Thyroid Disease: No Ulcer: Yes Influenza Vaccination: Yes ?: Not : 1 Para: 1 Past Surgical History Abdominal Surgery: Yes (ENDOMETRIAL TISSUE REMOVED 2002) Appendectomy: Yes Cardiac Surgery: No Section: Yes (1998) Cholecystectomy: Yes Coronary Artery Bypass Graft: No Ear Surgery: No Endocrine Surgery: No Eye Surgery: No Genitourinary Surgery: No Gynecologic Surgery: Yes (EXPLORATORY LAP 1990, EXPL LAP C CAUTERIZATION 1997 ) Hysterectomy: Yes Insulin Pump: No Joint Replacement: No Oral Surgery: No Pacemaker: No Thoracic Surgery: No Other Surgery: Yes (EXP LAP, EXP ABD SURGERY) Social History Alcohol Use: No Tobacco Use: No Substance Use: No Allergies-Medications (Allergen,Severity, Reaction): Coded Allergies: Sulfa (Sulfonamide Antibiotics) (Unverified Allergy, Intermediate, HIVES, 09/30/17) morphine (Unverified Allergy, Intermediate, HIVES, 09/30/17) Reported Meds & Prescriptions Reported Meds & Active Scripts Active Diflucan (Fluconazole) 150 Mg Tab 150 Mg PO ONCE Cipro (Ciprofloxacin HCl) 250 Mg Tab 250 Mg PO BID 5 Days Metformin (Metformin HCl) 1,000 Mg Tab 1,000 Mg PO BIDPC With meals Reported Trazodone (Trazodone HCl) 150 Mg Tablet 150 Mg PO HS Celexa (Citalopram Hydrobromide) 40 Mg Tab 60 Mg PO DAILY Hydrocodone-Acetaminophen 7.5-325 mg Tab 1 Tab PO DAILY PRN Proventil Hfa 6.7 GM Inh (Albuterol Sulfate) 90 Mcg/Act Aer 1 Puff INH Q4H PRN Metoprolol Tartrate 25 Mg Tab 25 Mg PO BID Review of Systems Except as stated in HPI: all other systems reviewed are Neg Physical Exam Narrative GENERAL: Well-developed, overly nourished, in no acute distress, and non-ill appearing. SKIN: Laceration noted over the medial aspect going into the plantar surface of the left foot. No foreign body. No crepitus. No tendon involvement. Neurovascularly intact distally. Capillary refill less than 2 seconds. Full range of motion distally. HEAD: Atraumatic. Normocephalic. EYES: Pupils equal and round. EOMI. No scleral icterus. No injection or drainage. ENT: No nasal bleeding or discharge. Mucous membranes pink and moist. NECK: Trachea midline. Supple. No nuclear rigidity. RESPIRATORY: No accessory muscle use. No respiratory distress. MUSCULOSKELETAL: No obvious deformities. No clubbing. No cyanosis. No edema. Full range of motion. NEUROLOGICAL: Awake and alert. No obvious cranial nerve deficits. Motor grossly within normal limits. Normal speech. PSYCHIATRIC: Appropriate mood and affect; insight and judgment normal. Data Data Last Documented VS Vital Signs Date Time Temp Pulse Resp B/P (MAP) Pulse Ox O2 Delivery O2 Flow Rate FiO2 09/30/17 14:47 99.5 78 16 136/79 (98) 95 Orders Orders Foot, Complete ([id number]) (09/30/17 ) Lidocai-Epi 1%-1:100,000 Inj (Xylocaine- (09/30/17 17:15) Ed Discharge Order (09/30/17 18:32) Splint Or Brace Apply/Monitor (09/30/17 18:32) Wound Care (09/30/17 18:32) Shoe Cast (09/30/17 ) MDM Medical Decision Making Medical Screen Exam Complete: Yes Emergency Medical Condition: Yes Interpretation(s) Last Impressions Foot X-Ray 09/30/17 0000 Signed Impressions: Service Date/Time: Saturday, September 30, 2017 17:34 - CONCLUSION: No acute bony findings. Krishna Henriquez MD Differential Diagnosis Laceration, foreign body, tendon injury, abrasion Narrative Course The patient suffered laceration to the extremity. There was no evidence to suggest foreign bodies. Visual, tactile and radiographic exams were unremarkable without evidence of foreign body at this time. There was no evidence of neurovascular injury. The patient had a normal distal vascular exam , and had full normal motor and sensory exams. There was also no evidence or tendon injury, with normal distal full range of motions, flexion, extension, abduction, adduction and opponens. There was no evidence of local joint space involvement at this time. The patient was irrigated with copious sterile normal saline and primary repair was performed. Please see procedure note. The patient was given signs and symptom warnings for infection, such as increasing pain, redness, swelling, associated heat, pus or fever. The patient was warned of possible unseen foreign body and instructed to return immediately if signs or symptoms develop. The patient was given instructions for timely follow up and for removal. The patient agreed with plan of care. Patient in no obvious distress upon re-evaluation. All pertinent Radiology result(s) discussed with patient/family. Patient was asked if they wanted to speak to my attending, which the patient did not wish to do at this time. Any questions/concerns in reference to patient diagnosis/condition discussed and clarified prior to patient's discharge. Reinforced sheer importance of close follow up with market news reporter. Instructed patient to return to ED immediately, if symptoms return/worsen. Patient showed understanding of above instructions. Further instructions and recommendations were detailed in discharge paperwork. Patient ambulated without difficulty out of ED at discharge. Procedures Procedure Narrative LACERATION REPAIR LOCATION: Medial aspect going to the plantar surface of the left foot LENGTH: Approximately 5 cm in total length NUMBER OF STITCHES/CLARA: 5 simple mattress and 2 simple interrupted REPAIR: Verbal consent was obtained. The area of the laceration was cleaned and prepped. The laceration was infiltrated with lidocaine with epi. The wound was copiously irrigated with 2 L of normal saline and explored without evidence of foreign body, bony involvement, ligament injury, tendon injury, or neurovascular injury. The wound was closed using 3-0 Ethilon. This was a single layer repair. A sterile dressing was applied by nurse. The patient was advised to keep the affected area as clean and dry as possible using soap and water. There were no complications. Patient tolerated the procedure well. Diagnosis Primary Impression: Foot laceration Qualified Codes: S91.312A - Laceration without foreign body, left foot, initial encounter Referrals: Te Valentine DPSalma Patient Instructions: Care For Your Stitches (ED), General Instructions, Laceration (ED) Departure Forms: Work Release Enter return to work date: Oct 02, 2017 Additional Instructions: Follow-up with market news reporter in 24-48 hours for reevaluation. Take all medication as prescribed. Keep wound dry and clean as possible using soap and water. Use Neosporin to promote healing. Do not soak or submerge wound. Where postop shoe until cleared by market news reporter. Return to the emergency department if symptoms get worse. Med/Other Pt SpecificInfo: Prescription(s) given Scripts Fluconazole (Diflucan) 150 Mg Tab 150 MG PO ONCE for Infection, #1 TAB 0 Refills Prov: Belen Mcallister DO 09/30/17 Ciprofloxacin (Cipro) 250 Mg Tab 250 MG PO BID for Infection for 5 Days, #10 TAB 0 Refills Prov: Belen Mcallister DO 09/30/17 Disposition: 01 DISCHARGE HOME Condition: Stable Robert Garsia Sep 30, 2017 17:12
[2017-09-30] MEDS ORDERED: LIDOCAINE 1%/EPINEPHrine 1:100,000 SOLN 50 ML VIAL INFIL ONE (17:15)
--- NOTE | 2017-09-30 18:05 | RADRPT ---
EXAM DATE/TIME: 09/30/2017 17:34 [facility] COMPARISON: No previous studies available for comparison. INDICATIONS : Patient lacerated left foot today on glass MEDICAL HISTORY : None. SURGICAL HISTORY : None. ENCOUNTER: Initial ACUITY: 1 day PAIN SCORE: 3/10 LOCATION: Left plantar surface on medial side of foot FINDINGS: Three view examination of the left foot demonstrates no bony destruction, dislocation, or fracture. The tarsal bones appear intact. The interphalangeal and metatarsophalangeal joints are intact. The calcaneus is intact. Bony mineralization is normal. Tiny plantar heel spur. No radiodense foreign b bobby is appreciated. CONCLUSION: No acute bony findings. Krishna Henriquez MD on September 30, 2017 at 18:03 Board Certified Radiologist. This report was verified electronically.
[2017-09-30] MEDS ORDERED: DIFL150T PO (18:35)
[2017-09-30] MEDS ORDERED: CIPR250T52 PO (18:35)
== END 2017-09-30 18:54 | disposition home or self-care (01) ==
LOC: PHEFT 14:38
DX: S91.312A Laceration without foreign body, left foot, initial encounter (principal); W25.XXXA Contact with sharp glass, initial encounter; J45.909 Unspecified asthma, uncomplicated; F32.9 Major depressive disorder, single episode, unspecified; E78.00 Pure hypercholesterolemia, unspecified; E11.9 Type 2 diabetes mellitus without complications; I10 Essential (primary) hypertension; Z88.5 Allergy status to narcotic agent; Z88.2 Allergy status to sulfonamides
CPT/HCPCS: 12002; 73630; 99283; L3260

== ENCOUNTER 2017-10-02 03:06 | Emergency (ER) | payer BC ==
[~2017-10-02] VITALS: Ht 162.6 cm; Wt 95.0 kg
[~2017-10-02 03:06] MED LIST changes: -CELE200C PO; -CEPH-460 PO; +CIPR250T52 PO; -CREON24 PO; -CYCL10TA PO; -DICY10 PO; +DIFL150T PO; -FISH500C PO; -FLUT1INH INH; -LANTUS2P; -LISD70 PO; -LISI-515 PO; -MELA1TAB33 PO; -PANT40TA3 PO
[2017-10-02 03:08] VITALS: BP 150/82; PULSE 84; RESP 18; TEMP 98.6; O2SAT 97
[2017-10-02] MEDS ORDERED: HYDR-3583 PO (04:57)
[2017-10-02] MEDS ORDERED: BACT800T5 PO (04:57)
--- NOTE | 2017-10-02 04:58 | PD ---
HPI Chief Complaint: Laceration/Skin Injury Time Seen by Provider: 04:50 Travel History International Travel<30 days: No Contact w/Intl Traveler<30days: No Traveled to known affect area: No History of Present Illness HPI The patient is a 47-year-old female that had her left foot sutured on Thursday following a household broken glass laceration. The patient states that the foot is swollen and painful. The patient is already on Cipro and amoxicillin. The Cipro is for the laceration and the amoxicillin is for a dental infection. 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 She is a non- insulin-dependent diabetic. She is allergic to sulfa antibiotics. PFSH Past Medical History Arthritis: No Asthma: Yes Anxiety: Yes Depression: Yes Heart Rhythm Problems: No Cancer: No Cardiac Catheterization: No Cardiovascular Problems: Yes High Cholesterol: Yes (at one time, pt takes fish oil) Chest Pain: No Congestive Heart Failure: No COPD: No Diabetes: Yes Patient Takes Glucophage: Yes Diminished Hearing: No Endocrine: Yes Gastrointestinal Disorders: Yes (PAIN TO RIGHT UPPER QUAD, WORSE THIS TIME) GERD: Yes Genitourinary: No Hiatal Hernia: No Heparin Induced Thrombocytopen: No Hypertension: Yes Immune Disorder: No Implanted Vascular Access Dvce: No Kidney Stones: No Musculoskeletal: Yes Neurologic: No Psychiatric: Yes Reproductive: Yes (HYSTERECTOMY) Respiratory: Yes Immunizations Current: Yes Migraines: No Pancreatitis: Yes Sleep Apnea: No Thyroid Disease: No Ulcer: Yes ?: Not : 1 Para: 1 Past Surgical History Abdominal Surgery: Yes (ENDOMETRIAL TISSUE REMOVED 2002) Appendectomy: Yes Cardiac Surgery: No Section: Yes (1998) Cholecystectomy: Yes Coronary Artery Bypass Graft: No Ear Surgery: No Endocrine Surgery: No Eye Surgery: No Genitourinary Surgery: No Gynecologic Surgery: Yes (EXPLORATORY LAP 1990, EXPL LAP C CAUTERIZATION 1997 ) Hysterectomy: Yes Insulin Pump: No Joint Replacement: No Neurologic Surgery: No Oral Surgery: No Pacemaker: No Thoracic Surgery: No Other Surgery: Yes (EXP LAP, EXP ABD SURGERY) Social History Alcohol Use: No Tobacco Use: No Substance Use: No Allergies-Medications (Allergen,Severity, Reaction): Coded Allergies: Sulfa (Sulfonamide Antibiotics) (Unverified Allergy, Intermediate, HIVES, 09/30/17) morphine (Unverified Allergy, Intermediate, HIVES, 09/30/17) Reported Meds & Prescriptions Reported Meds & Active Scripts Active Cipro (Ciprofloxacin HCl) 250 Mg Tab 250 Mg PO BID 5 Days Metformin (Metformin HCl) 1,000 Mg Tab 1,000 Mg PO BIDPC With meals Reported Trazodone (Trazodone HCl) 150 Mg Tablet 150 Mg PO HS Celexa (Citalopram Hydrobromide) 40 Mg Tab 60 Mg PO DAILY Hydrocodone-Acetaminophen 7.5-325 mg Tab 1 Tab PO DAILY PRN Proventil Hfa 6.7 GM Inh (Albuterol Sulfate) 90 Mcg/Act Aer 1 Puff INH Q4H PRN Metoprolol Tartrate 25 Mg Tab 25 Mg PO BID Review of Systems Except as stated in HPI: all other systems reviewed are Neg Physical Exam Narrative GENERAL: Well-nourished, well-developed patient. SKIN: Focused skin assessment warm/dry. The laceration shows erythema around the wound edges and the foot is tender. There is no pus coming out of the sutures or from the laceration. HEAD: Normocephalic. EYES: No scleral icterus. No injection or drainage. NECK: Supple, trachea midline. No JVD or lymphadenopathy. CARDIOVASCULAR: Regular rate and rhythm without murmurs, gallops, or rubs. RESPIRATORY: Breath sounds equal bilaterally. No accessory muscle use. GASTROINTESTINAL: Abdomen soft, non-tender, nondistended. MUSCULOSKELETAL: No cyanosis, or edema. BACK: Nontender without obvious deformity. No CVA tenderness. Data Data Last Documented VS Vital Signs Date Time Temp Pulse Resp B/P (MAP) Pulse Ox O2 Delivery O2 Flow Rate FiO2 10/02/17 03:08 98.6 84 18 150/82 (104) 97 MDM Medical Decision Making Medical Screen Exam Complete: Yes Emergency Medical Condition: Yes Medical Record Reviewed: Yes Differential Diagnosis Infected laceration, laceration pain, swelling from lack of elevation Narrative Course The patient may have an early infected laceration but this is questionable at this time. She does have considerable pain and there is swelling around the laceration because of lack of proper elevation. Plan: The patient will be given a work excuse to return to work after cleared by the wound clinic. She will need to see the wound clinic as soon as possible and should call later on this morning to set up an appointment. She will be put on doxycycline, the patient is allergic to sulfa antibiotics. Diagnosis Primary Impression: Infected laceration Med/Other Pt SpecificInfo: Prescription(s) given Scripts Sulfamethoxazole-Trimethoprim (Bactrim DS) 800-160 Mg Tab 1 TAB PO BID for Infection, #20 TAB 0 Refills Prov: Julio C Doran MD 10/02/17 Hydrocodone-Acetaminophen (Hydrocodone-Acetaminophen) 10-325 mg Tab 1 TAB PO Q4H Y for PAIN, #30 TAB 0 Refills Prov: Julio C Doran MD 10/02/17 Disposition: 01 DISCHARGE HOME Condition: Stable Julio C Doran MD Oct 02, 2017 04:58
[2017-10-02] MEDS ORDERED: DOXY100C PO (05:06)
[2017-10-02] MEDS ORDERED: DOXYCYCLINE HYCLATE 100 MG CAP PO ONE (05:15)
[2017-10-02] MEDS ORDERED: ACETAMINOPHEN/HYDROcodone 325 MG/5 MG TAB PO ONE (05:15)
[2017-10-02 05:35] VITALS: BP 147/72
== END 2017-10-02 05:37 | disposition home or self-care (01) ==
LOC: PHED 03:06
DX: S91.312D Laceration without foreign body, left foot, subsequent encounter (principal); L08.9 Local infection of the skin and subcutaneous tissue, unspecified; W25.XXXD Contact with sharp glass, subsequent encounter; E11.9 Type 2 diabetes mellitus without complications; E78.00 Pure hypercholesterolemia, unspecified; F32.9 Major depressive disorder, single episode, unspecified; F41.9 Anxiety disorder, unspecified; I10 Essential (primary) hypertension; J45.909 Unspecified asthma, uncomplicated
CPT/HCPCS: 99283

== ENCOUNTER 2018-01-11 22:30 | Emergency (ER) | payer BC ==
[~2018-01-11] VITALS: Ht 162.6 cm; Wt 100.0 kg
[~2018-01-11 22:30] MED LIST changes: -DIFL150T PO; +DOXY100C PO; +HYDR-3583 PO
[2018-01-11 22:36] VITALS: BP 149/72; PULSE 105; RESP 18; TEMP 98.5; O2SAT 94
[2018-01-11] MEDS ORDERED: INSULIN HUMAN REGULAR 1,000 UNITS/10 ML VIAL IV PUSH ONE (23:00)
[2018-01-11 23:11] LABS: AUTOMATED NEUTROPHIL # 8.7 TH/MM3 (1.8-7.7); BASOPHIL # 0.2 TH/MM3 (0-0.2); BASOPHIL % 1.7 % (0.0-2.0); EOSINOPHIL % 0.1 % (0.0-4.0); HEMATOCRIT 48.4 % (35.0-46.0); HEMOGLOBIN 15.7 GM/DL (11.6-15.3); LYMPH % 11.1 % (9.0-44.0); LYMPHOCYTE # 1.1 TH/MM3 (1.0-4.8); MEAN CELL VOLUME 88.2 FL (80.0-100.0); MEAN CORPUSCULAR HEMOGLOBIN 28.6 PG (27.0-34.0); MEAN CORPUSCULAR HGB CONC 32.4 % (32.0-36.0); MEAN PLATELET VOLUME 9.2 FL (7.0-11.0); MONO % 0.7 % (0.0-8.0); MONOCYTE # 0.1 TH/MM3 (0-0.9); NEUT % 86.4 % (16.0-70.0); PLATELET COUNT 273 TH/MM3 (150-450); RED BLOOD COUNT 5.49 MIL/MM3 (4.00-5.30); RED CELL DISTRIBUTION WIDTH 11.6 % (11.6-17.2); WHITE BLOOD COUNT 10.1 TH/MM3 (4.0-11.0)
[2018-01-11 23:20] LABS: CHLORIDE 93 MEQ/L (98-107); SODIUM (NA) 128 MEQ/L (136-145)
--- NOTE | 2018-01-11 23:22 | RADRPT ---
EXAM DATE: 01/11/2018 11:13 PM EDT AGE/SEX: 47 years / Female INDICATIONS: Shortness of breath. CLINICAL DATA: This is the patient's initial encounter. Patient reports that signs and symptoms have been present for 1 day and indicates a pain score of 0/10. MEDICAL/SURGICAL HISTORY: Asthma. Hypertension. None. COMPARISON: [facility], CHEST SINGLE AP, 02/08/2013. . FINDINGS: A single AP view of the chest demonstrates the lungs to be symmetrically aerated without evidence of mass, infiltrate or effusion. The cardiomediastinal contours are unremarkable. Osseous structures a re intact. CONCLUSION: No acute pulmonary infiltrates. No significant changes. Electronically signed by: Naveed Del Toro MD 01/11/2018 11:21 PM EDT
[2018-01-11 23:24] LABS: ALBUMIN 4.3 GM/DL (3.4-5.0); BICARBONATE 22.7 MEQ/L (21.0-32.0); BLOOD UREA NITROGEN 17 MG/DL (7-18); CALCIUM 9.4 MG/DL (8.5-10.1)
--- NOTE | 2018-01-11 23:25 | PD ---
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 And so over the last few days the patient has developed a cough along with asthma exacerbation, her primary care physician started her on amoxicillin and a Medrol Dosepak as well as given her a Decadron shot today. The patient has started to notice that her glucose levels were up in the 300s and then 400s and finally the 500s despite her using her medications. Patient was also started on TRESIBA for better control, she received her first dose today at 5:00. Patient has an allergy to sulfa, morphine, and shellfish Past medical history significant for hypercholesterolemia, hypertension, asthma , ulcer, pancreatitis, cholecystectomy, appendectomy, hysterectomy, diabetes PFSH Past Medical History Arthritis: No Asthma: Yes Anxiety: Yes Depression: Yes Heart Rhythm Problems: No Cancer: No Cardiac Catheterization: No Cardiovascular Problems: Yes High Cholesterol: Yes (at one time, pt takes fish oil) Chest Pain: No Congestive Heart Failure: No COPD: No Diabetes: Yes Patient Takes Glucophage: Yes Diminished Hearing: No Endocrine: Yes Gastrointestinal Disorders: Yes (PAIN TO RIGHT UPPER QUAD, WORSE THIS TIME) GERD: Yes Genitourinary: No Hiatal Hernia: No Heparin Induced Thrombocytopen: No Hypertension: Yes Immune Disorder: No Implanted Vascular Access Dvce: No Kidney Stones: No Musculoskeletal: Yes Neurologic: No Psychiatric: Yes Reproductive: Yes (HYSTERECTOMY) Respiratory: Yes Immunizations Current: Yes Migraines: No Pancreatitis: Yes Sleep Apnea: No Thyroid Disease: No Ulcer: Yes Tetanus Vaccination: < 5 Years Influenza Vaccination: Yes ?: Not : 1 Para: 1 Past Surgical History Abdominal Surgery: Yes (ENDOMETRIAL TISSUE REMOVED 2002) Appendectomy: Yes Cardiac Surgery: No Section: Yes (1998) Cholecystectomy: Yes Coronary Artery Bypass Graft: No Ear Surgery: No Endocrine Surgery: No Eye Surgery: No Genitourinary Surgery: No Gynecologic Surgery: Yes (EXPLORATORY LAP 1990, EXPL LAP C CAUTERIZATION 1997 ) Hysterectomy: Yes Insulin Pump: No Joint Replacement: No Neurologic Surgery: No Oral Surgery: No Pacemaker: No Thoracic Surgery: No Other Surgery: Yes (EXP LAP, EXP ABD SURGERY) Social History Alcohol Use: No Tobacco Use: No Substance Use: No Allergies-Medications (Allergen,Severity, Reaction): Coded Allergies: Sulfa (Sulfonamide Antibiotics) (Unverified Allergy, Intermediate, HIVES, 01/11/18) morphine (Unverified Allergy, Intermediate, HIVES, 01/11/18) shellfish derived (Verified Allergy, Unknown, Anaphylaxis, 01/11/18) Reported Meds & Prescriptions Reported Meds & Active Scripts Active Doxycycline Hyclate 100 Mg Cap 100 Mg PO BID Hydrocodone-Acetaminophen 10-325 mg Tab 1 Tab PO Q4H PRN Cipro (Ciprofloxacin HCl) 250 Mg Tab 250 Mg PO BID 5 Days Metformin (Metformin HCl) 1,000 Mg Tab 1,000 Mg PO BIDPC With meals Reported Trazodone (Trazodone HCl) 150 Mg Tablet 150 Mg PO HS Celexa (Citalopram Hydrobromide) 40 Mg Tab 60 Mg PO DAILY Hydrocodone-Acetaminophen 7.5-325 mg Tab 1 Tab PO DAILY PRN Proventil Hfa 6.7 GM Inh (Albuterol Sulfate) 90 Mcg/Act Aer 1 Puff INH Q4H PRN Metoprolol Tartrate 25 Mg Tab 25 Mg PO BID Review of Systems General / Constitutional: No: Fever Eyes: No: Visual changes HENT: No: Headaches Cardiovascular: No: Chest Pain or Discomfort Respiratory: No: Shortness of Breath Gastrointestinal: No: Abdominal Pain Genitourinary: No: Dysuria Musculoskeletal: No: Pain Skin: No Rash Neurologic: No: Weakness Psychiatric: No: Depression Endocrine: Positive: Polyuria, Polydipsia, Other (Hyperglycemia) Hematologic/Lymphatic: No: Easy Bruising Physical Exam Narrative GENERAL: SKIN: Warm and dry. HEAD: Atraumatic. Normocephalic. EYES: Pupils equal and round. No scleral icterus. No injection or drainage. ENT: No nasal bleeding or discharge. Mucous membranes pink and moist. NECK: Trachea midline. No JVD. CARDIOVASCULAR: Regular rate and rhythm. RESPIRATORY: No accessory muscle use. Clear to auscultation. Breath sounds equal bilaterally. GASTROINTESTINAL: Abdomen soft, non-tender, nondistended. MUSCULOSKELETAL: Extremities without clubbing, cyanosis, or edema. No obvious deformities. NEUROLOGICAL: Awake and alert. No obvious cranial nerve deficits. Motor grossly within normal limits. Five out of 5 muscle strength in the arms and legs. Normal speech. PSYCHIATRIC: Appropriate mood and affect; insight and judgment normal. Data Data Last Documented VS Vital Signs Date Time Temp Pulse Resp B/P (MAP) Pulse Ox O2 Delivery O2 Flow Rate FiO2 01/11/18 23:10 18 97 Room Air 01/11/18 22:36 98.5 105 149/72 (97) Orders Orders Electrocardiogram (01/11/18 22:53) Complete Blood Count With Diff (01/11/18 22:53) Comprehensive Metabolic Panel (01/11/18 22:53) Troponin I (01/11/18 22:53) Lipase (01/11/18 22:53) Blood Gas Venous Ph (01/11/18 22:53) Chest, Single Ap (01/11/18 22:53) Insulin Human Regular Inj (Novolin R Inj (01/11/18 23:00) Sodium Chlor 0.9% 1000 Ml Inj (Ns 1000 M (01/11/18 23:30) Insulin Human Regular Inj (Novolin R Inj (01/12/18 00:15) Ondansetron Odt (Zofran Odt) (01/12/18 00:15) Albuterol-Ipratropium Neb (Duoneb Neb) (01/12/18 00:30) Insulin Human Regular Inj (Novolin R Inj (01/12/18 00:30) Ed Discharge Order (01/12/18 00:42) Labs Laboratory Tests Test 01/11/18 23:04 01/11/18 23:17 White Blood Count 10.1 TH/MM3 Red Blood Count 5.49 MIL/MM3 Hemoglobin 15.7 GM/DL Hematocrit 48.4 % Mean Corpuscular Volume 88.2 FL Mean Corpuscular Hemoglobin 28.6 PG Mean Corpuscular Hemoglobin Concent 32.4 % Red Cell Distribution Width 11.6 % Platelet Count 273 TH/MM3 Mean Platelet Volume 9.2 FL Neutrophils (%) (Auto) 86.4 % Lymphocytes (%) (Auto) 11.1 % Monocytes (%) (Auto) 0.7 % Eosinophils (%) (Auto) 0.1 % Basophils (%) (Auto) 1.7 % Neutrophils # (Auto) 8.7 TH/MM3 Lymphocytes # (Auto) 1.1 TH/MM3 Monocytes # (Auto) 0.1 TH/MM3 Eosinophils # (Auto) 0.0 TH/MM3 Basophils # (Auto) 0.2 TH/MM3 CBC Comment DIFF FINAL Differential Comment Blood Urea Nitrogen 17 MG/DL Creatinine 1.20 MG/DL Random Glucose 622 MG/DL Total Protein 8.3 GM/DL Albumin 4.3 GM/DL Calcium Level 9.4 MG/DL Alkaline Phosphatase 160 U/L Aspartate Amino Transf (AST/SGOT) 29 U/L Alanine Aminotransferase (ALT/SGPT) 45 U/L Total Bilirubin 0.4 MG/DL Sodium Level 128 MEQ/L Potassium Level 4.4 MEQ/L Chloride Level 93 MEQ/L Carbon Dioxide Level 22.7 MEQ/L Anion Gap 12 MEQ/L Estimat Glomerular Filtration Rate 49 ML/MIN Troponin I LESS THAN 0.02 NG/ML Lipase 533 U/L Venous Blood pH 7.38 MDM Medical Decision Making Medical Screen Exam Complete: Yes Emergency Medical Condition: Yes Medical Record Reviewed: Yes Interpretation(s) Pulse ox, had excellent pleth wave, on room air oximetry reads between 96 and 100 which is within normal limits and does not show any evidence of hypoxemia EKG shows normal sinus rhythm, normal intervals, incomplete right bundle branch block pattern noted, no evidence of any ST elevation IA pattern, Differential Diagnosis DKA versus hyperglycemia versus electrolyte abnormalities versus pneumonia versus STEMI Narrative Course CBC shows no leukocytosis, slight hemoconcentration of 16/48, 86% neutrophilia, normal platelet count Pseudohyponatremia 128 VBG 7.38 pH which is within normal limits My interpretation of the portable chest x-ray is consistent with some prominent bronchial markings but without any pneumothorax, consolidation,pleural effusion , nor any cardiomegaly. Diagnosis Primary Impression: Hyperglycemia secondary to steroid Patient Instructions: Diabetic Hyperglycemia (ED), General Instructions Disposition: 01 DISCHARGE HOME Condition: Stable Yoan Santa MD Jan 11, 2018 23:25
[2018-01-11 23:27] LABS: ALT (GPT) 45 U/L (10-53); AST (GOT) 29 U/L (15-37); GLOMERULAR FILTRATION RATE 49 ML/MIN (>89)
[2018-01-11 23:28] LABS: TOTAL BILIRUBIN ADULT 0.4 MG/DL (0.2-1.0)
[2018-01-11 23:29] LABS: TOTAL PROTEIN 8.3 GM/DL (6.4-8.2)
[2018-01-11 23:30] LABS: ALKALINE PHOSPHATASE 160 U/L (45-117)
[2018-01-11] MEDS ORDERED: SODIUM CHLOR 0.9% 1000 ML INJ 1,000 ML IV ONE (23:30)
[2018-01-11 23:34] LABS: GLUCOSE,RANDOM 622 MG/DL (74-106)
[2018-01-11 23:41] LABS: TROPONIN I LESS THAN 0.02 NG/ML (0.02-0.05)
[2018-01-12] MEDS ORDERED: INSULIN HUMAN REGULAR 1,000 UNITS/10 ML VIAL IV PUSH ONE (00:15)
[2018-01-12] MEDS ORDERED: ONDANSETRON ODT 4 MG TAB PO ONE (00:15)
[2018-01-12] MEDS ORDERED: RESP: ALBUTEROL 2.5 MG/IPRATROPIUM 0.5 MG NEB (SCH) INH ONE (00:30)
[2018-01-12] MEDS ORDERED: INSULIN HUMAN REGULAR 1,000 UNITS/10 ML VIAL SQ ONE (00:30)
--- NOTE | 2018-01-12 16:09 | EKG ---
Date Performed: 01/11/2018 Time Performed: 23:24:13 PTAGE: 47 years EKG: SINUS TACHYCARDIA INCOMPLETE RIGHT BUNDLE BRANCH BLOCK NONSPECIFIC ST ELEVATION ABNORMAL RH YT ECG Since the PREVIOUS TRACING , no significant change noted PREVIOUS TRACIN02/08/2013 22.07 DOCTOR: Dulce Sanabria Interpretating Date/Time 01/12/2018 16:09:15
== END 2018-01-12 01:10 | disposition home or self-care (01) ==
LOC: PHED 22:30
DX: E11.65 Type 2 diabetes mellitus with hyperglycemia (principal); T38.0X5A Adverse effect of glucocorticoids and synthetic analogues, initial encounter; R94.31 Abnormal electrocardiogram [ECG] [EKG]; E78.00 Pure hypercholesterolemia, unspecified; I10 Essential (primary) hypertension; J45.909 Unspecified asthma, uncomplicated; F41.9 Anxiety disorder, unspecified; F32.9 Major depressive disorder, single episode, unspecified; K21.9 Gastro-esophageal reflux disease without esophagitis
CPT/HCPCS: 71045; 80053; 82800; 83690; 84484; 85025; 93005; 94664; 96361; 96372; 96374; 96375; 99285; J1815; J7030

== ENCOUNTER 2018-01-20 02:28 | Emergency (ER) | payer BC ==
[~2018-01-20] VITALS: Ht 162.6 cm; Wt 95.3 kg
[2018-01-20 02:32] VITALS: BP 139/79; PULSE 93; RESP 16; TEMP 99; O2SAT 99
[2018-01-20] MEDS ORDERED: SODIUM CHLOR 0.9% 1000 ML INJ 1,000 ML IV ONE ×2 (02:59→04:30)
[2018-01-20 03:00] VITALS: BP 147/73; PULSE 82; RESP 18; O2SAT 96
[2018-01-20] MEDS ORDERED: PANTOPRAZOLE SODIUM 40 MG VIAL IV PUSH ONE (03:00)
[2018-01-20] MEDS ORDERED: SODIUM CHLORIDE 0.9% FLUSH 10 ML FLUSH IVF PRN (03:00)
[2018-01-20] MEDS ORDERED: ONDANSETRON HCL 4 MG/2 ML VIAL IV PUSH ONE (03:00)
[2018-01-20] MEDS ORDERED: LANTUS2P SQ (03:07)
[2018-01-20] MEDS ORDERED: INSU100V2 SQ (03:08)
[2018-01-20] MEDS ORDERED: LISI-519 PO (03:08)
[2018-01-20] MEDS ORDERED: MOBI7.5T PO (03:09)
[2018-01-20] MEDS ORDERED: MONT10TA2 PO (03:09)
--- NOTE | 2018-01-20 03:23 | PD ---
HPI Chief Complaint: General Weakness Time Seen by Provider: 02:50 Travel History International Travel<30 days: No Contact w/Intl Traveler<30days: No Traveled to known affect area: No History of Present Illness HPI 47-year-old female with past medical history of type 1 diabetes, asthma, chronic pancreatitis presents to the emergency room was persistent generalized weakness, nausea, vomiting, diarrhea, recurrent intermittent abdominal pain, blurring of vision, dizziness for the last 2 days. Patient had a persistent hyperglycemia since January 11 after receiving a Decadron shot for asthma. Since that time the patient has been on Lantus and sliding scale insulin. This morning patient's fasting blood sugar was 409. Patient denies any fever, chills , cough, dysuria. PFSH Past Medical History Arthritis: No Asthma: Yes Anxiety: Yes Depression: Yes Heart Rhythm Problems: No Cancer: No Cardiac Catheterization: No Cardiovascular Problems: Yes High Cholesterol: Yes (at one time, pt takes fish oil) Chest Pain: No Congestive Heart Failure: No COPD: No Diabetes: Yes Patient Takes Glucophage: Yes (01/19/18 at 1630) Diminished Hearing: No Endocrine: Yes Gastrointestinal Disorders: Yes (PAIN TO RIGHT UPPER QUAD, WORSE THIS TIME) GERD: Yes Genitourinary: No Hiatal Hernia: No Heparin Induced Thrombocytopen: No Hypertension: Yes Immune Disorder: No Implanted Vascular Access Dvce: No Kidney Stones: No Musculoskeletal: Yes Neurologic: No Psychiatric: Yes Reproductive: Yes (HYSTERECTOMY) Respiratory: Yes Immunizations Current: Yes Migraines: No Pancreatitis: Yes Sleep Apnea: No Thyroid Disease: No Ulcer: Yes Tetanus Vaccination: < 5 Years Influenza Vaccination: Yes ?: Not : 1 Para: 1 Past Surgical History Abdominal Surgery: Yes (ENDOMETRIAL TISSUE REMOVED 2002) Appendectomy: Yes Cardiac Surgery: No Section: Yes (1998) Cholecystectomy: Yes Coronary Artery Bypass Graft: No Ear Surgery: No Endocrine Surgery: No Eye Surgery: No Genitourinary Surgery: No Gynecologic Surgery: Yes (EXPLORATORY LAP 1990, EXPL LAP C CAUTERIZATION 1997 ) Hysterectomy: Yes (Complete) Insulin Pump: No Joint Replacement: No Neurologic Surgery: No Oral Surgery: No Pacemaker: No Thoracic Surgery: No Other Surgery: Yes (EXP LAP, EXP ABD SURGERY) Social History Alcohol Use: No Tobacco Use: No Substance Use: No Allergies-Medications (Allergen,Severity, Reaction): Coded Allergies: Sulfa (Sulfonamide Antibiotics) (Verified Allergy, Intermediate, HIVES, ) morphine (Verified Allergy, Intermediate, HIVES, 01/20/18) shellfish derived (Verified Allergy, Unknown, Anaphylaxis, 01/20/18) Reported Meds & Prescriptions Reported Meds & Active Scripts Active Omeprazole 40 Mg Cap 40 Mg PO DAILY Zofran Odt (Ondansetron Odt) 4 Mg Tab 4 Mg SL Q6HR PRN Metformin (Metformin HCl) 1,000 Mg Tab 1,000 Mg PO BIDPC With meals Reported Mobic (Meloxicam) 7.5 Mg Tab 7.5 Mg PO DAILY Singulair (Montelukast Sodium) 10 Mg Tab 10 Mg PO DAILY Lisinopril 5 Mg Tab 5 Mg PO DAILY Humulin R Inj (Insulin Human Regular) 1,000 Unit/10 Ml Vial 2-10 Units SQ TIDAC PRN IMPORTANT TO EAT A MEAL WITHIN 30-60 MINUTES OF DOSING Lantus Inj (Insulin Glargine) 100 Unit/Ml Inj 15 Units SQ DAILY Trazodone (Trazodone HCl) 150 Mg Tablet 150 Mg PO HS Celexa (Citalopram Hydrobromide) 40 Mg Tab 60 Mg PO DAILY Hydrocodone-Acetaminophen 7.5-325 mg Tab 1 Tab PO DAILY PRN Proventil Hfa 6.7 GM Inh (Albuterol Sulfate) 90 Mcg/Act Aer 1 Puff INH Q4H PRN Metoprolol Tartrate 25 Mg Tab 25 Mg PO BID Review of Systems Except as stated in HPI: all other systems reviewed are Neg General / Constitutional: No: Fever, Chills Eyes: Positive: Blurred Vision HENT: No: Rhinorrhea, Congestion, Neck Stiffness, Neck Pain, Earache Cardiovascular: Positive: Palpitations Respiratory: No: Cough, Shortness of Breath, Wheezing Gastrointestinal: Positive: Nausea, Vomiting, Diarrhea, Abdominal Pain Genitourinary: No: Dysuria Musculoskeletal: No: Myalgias Skin: No Rash, No Hives Neurologic: No: Weakness, Dizziness, Syncope, Headache, Slurred Speech, Seizures Psychiatric: No: Suicidal Ideations Physical Exam Narrative Vital Signs Date Time Temp Pulse Resp B/P (MAP) Pulse Ox O2 Delivery O2 Flow Rate FiO2 01/20/18 03:10 18 97 01/20/18 02:32 99.0 93 16 139/79 (99) 99 GENERAL: Patient is alert and oriented -3 SKIN: Focused skin assessment warm/dry. HEAD: Atraumatic. Normocephalic. EYES: Pupils equal and round. No scleral icterus. No injection or drainage. ENT: No nasal bleeding or discharge. Mucous membranes pink and moist. NECK: Trachea midline. No JVD. CARDIOVASCULAR: Regular rate and rhythm. No murmur appreciated. RESPIRATORY: No accessory muscle use. Clear to auscultation. Breath sounds equal bilaterally. GASTROINTESTINAL: Abdomen soft, non-tender, nondistended. Hepatic and splenic margins not palpable. MUSCULOSKELETAL: No obvious deformities. No clubbing. No cyanosis. No edema. NEUROLOGICAL: Awake and alert. No obvious cranial nerve deficits. Motor grossly within normal limits. Normal speech. PSYCHIATRIC: Appropriate mood and affect; insight and judgment normal. Data Data Last Documented VS Vital Signs Date Time Temp Pulse Resp B/P (MAP) Pulse Ox O2 Delivery O2 Flow Rate FiO2 01/20/18 05:17 74 18 125/61 (82) 96 01/20/18 04:01 Room Air 01/20/18 02:32 99.0 Vital Signs Date Time Temp Pulse Resp B/P (MAP) Pulse Ox O2 Delivery O2 Flow Rate FiO2 01/20/18 05:17 74 18 125/61 (82) 96 01/20/18 04:01 82 18 132/72 (92) 96 Room Air 01/20/18 03:10 18 97 01/20/18 03:00 82 18 147/73 (97) 96 Room Air 01/20/18 02:32 99.0 93 16 139/79 (99) 99 Orders Orders Complete Blood Count With Diff (01/20/18 02:59) Comprehensive Metabolic Panel (01/20/18 02:59) Lipase (01/20/18 02:59) Iv Access Insert/Monitor (01/20/18 02:59) Ecg Monitoring (01/20/18 02:59) Oximetry (01/20/18 02:59) Ondansetron Inj (Zofran Inj) (01/20/18 03:00) Pantoprazole Inj (Protonix Inj) (01/20/18 03:00) Sodium Chlor 0.9% 1000 Ml Inj (Ns 1000 M (01/20/18 02:59) Sodium Chloride 0.9% Flush (Ns Flush) (01/20/18 03:00) Ed Urine Pregnancytest Poc (01/20/18 02:59) Ed Discharge Order (01/20/18 04:07) Sodium Chlor 0.9% 1000 Ml Inj (Ns 1000 M (01/20/18 04:30) Labs Laboratory Tests Test 01/20/18 03:30 White Blood Count 8.5 TH/MM3 Red Blood Count 4.98 MIL/MM3 Hemoglobin 15.2 GM/DL Hematocrit 44.9 % Mean Corpuscular Volume 90.1 FL Mean Corpuscular Hemoglobin 30.5 PG Mean Corpuscular Hemoglobin Concent 33.8 % Red Cell Distribution Width 11.8 % Platelet Count 223 TH/MM3 Mean Platelet Volume 8.9 FL Neutrophils (%) (Auto) 52.1 % Lymphocytes (%) (Auto) 39.8 % Monocytes (%) (Auto) 5.7 % Eosinophils (%) (Auto) 2.0 % Basophils (%) (Auto) 0.4 % Neutrophils # (Auto) 4.4 TH/MM3 Lymphocytes # (Auto) 3.4 TH/MM3 Monocytes # (Auto) 0.5 TH/MM3 Eosinophils # (Auto) 0.2 TH/MM3 Basophils # (Auto) 0.0 TH/MM3 CBC Comment DIFF FINAL Differential Comment Blood Urea Nitrogen 12 MG/DL Creatinine 0.62 MG/DL Random Glucose 272 MG/DL Total Protein 7.4 GM/DL Albumin 4.0 GM/DL Calcium Level 8.8 MG/DL Alkaline Phosphatase 90 U/L Aspartate Amino Transf (AST/SGOT) 25 U/L Alanine Aminotransferase (ALT/SGPT) 47 U/L Total Bilirubin 0.3 MG/DL Sodium Level 135 MEQ/L Potassium Level 3.9 MEQ/L Chloride Level 102 MEQ/L Carbon Dioxide Level 24.5 MEQ/L Anion Gap 9 MEQ/L Estimat Glomerular Filtration Rate 104 ML/MIN Lipase 682 U/L [facility] Medical Decision Making Medical Screen Exam Complete: Yes Emergency Medical Condition: Yes Medical Record Reviewed: Yes Differential Diagnosis DKA, hyperglycemia, UTI, gastroenteritis, sepsis, Narrative Course Patient condition improved during the ER course with IV fluids and nausea medication. Patient feels much better and she will be discharged home. Blood glucose level improved to 200+. Diagnosis Primary Impression: Abdominal pain Additional Impressions: DM2 (diabetes mellitus, type 2) Pancreatitis Referrals: Primary Care Physician 2 days Scripts Omeprazole (Omeprazole) 40 Mg Cap 40 MG PO DAILY, #14 CAP 0 Refills Prov: Tyler Díaz MD 01/20/18 Ondansetron Odt (Zofran Odt) 4 Mg Tab 4 MG SL Q6HR Y for Nausea/Vomiting, #30 TAB 0 Refills Prov: Tyler Díaz MD 01/20/18 Disposition: 01 DISCHARGE HOME Condition: Stable Tyler Díaz MD Jan 20, 2018 03:23
[2018-01-20 03:42] LABS: AUTOMATED NEUTROPHIL # 4.4 TH/MM3 (1.8-7.7); BASOPHIL % 0.4 % (0.0-2.0); EOSINOPHIL # 0.2 TH/MM3 (0-0.4); HEMATOCRIT 44.9 % (35.0-46.0); HEMOGLOBIN 15.2 GM/DL (11.6-15.3); LYMPH % 39.8 % (9.0-44.0); LYMPHOCYTE # 3.4 TH/MM3 (1.0-4.8); MEAN CELL VOLUME 90.1 FL (80.0-100.0); MEAN CORPUSCULAR HEMOGLOBIN 30.5 PG (27.0-34.0); MEAN CORPUSCULAR HGB CONC 33.8 % (32.0-36.0); MEAN PLATELET VOLUME 8.9 FL (7.0-11.0); MONO % 5.7 % (0.0-8.0); MONOCYTE # 0.5 TH/MM3 (0-0.9); NEUT % 52.1 % (16.0-70.0); PLATELET COUNT 223 TH/MM3 (150-450); RED BLOOD COUNT 4.98 MIL/MM3 (4.00-5.30); RED CELL DISTRIBUTION WIDTH 11.8 % (11.6-17.2); WHITE BLOOD COUNT 8.5 TH/MM3 (4.0-11.0)
[2018-01-20 03:48] LABS: CHLORIDE 102 MEQ/L (98-107); SODIUM (NA) 135 MEQ/L (136-145)
[2018-01-20 03:52] LABS: BICARBONATE 24.5 MEQ/L (21.0-32.0); CALCIUM 8.8 MG/DL (8.5-10.1)
[2018-01-20 03:53] LABS: BLOOD UREA NITROGEN 12 MG/DL (7-18); GLUCOSE,RANDOM 272 MG/DL (74-106)
[2018-01-20 03:55] LABS: ALT (GPT) 47 U/L (10-53); AST (GOT) 25 U/L (15-37); CREATININE 0.62 MG/DL (0.50-1.00); GLOMERULAR FILTRATION RATE 104 ML/MIN (>89)
[2018-01-20 03:57] LABS: TOTAL BILIRUBIN ADULT 0.3 MG/DL (0.2-1.0); TOTAL PROTEIN 7.4 GM/DL (6.4-8.2)
[2018-01-20 03:58] LABS: ALKALINE PHOSPHATASE 90 U/L (45-117)
[2018-01-20 04:01] VITALS: BP 132/72; PULSE 82; RESP 18; O2SAT 96
[2018-01-20] MEDS ORDERED: OMEP40CA2 PO (04:06)
[2018-01-20] MEDS ORDERED: ZOFR4TAB3 SL (04:06)
[2018-01-20 05:17] VITALS: BP 125/61
== END 2018-01-20 05:26 | disposition home or self-care (01) ==
LOC: PHED 02:28
DX: K85.90 Acute pancreatitis without necrosis or infection, unspecified (principal); E10.9 Type 1 diabetes mellitus without complications; J45.909 Unspecified asthma, uncomplicated; F41.9 Anxiety disorder, unspecified; F32.9 Major depressive disorder, single episode, unspecified; E78.00 Pure hypercholesterolemia, unspecified; K21.9 Gastro-esophageal reflux disease without esophagitis; I10 Essential (primary) hypertension; Z79.4 Long term (current) use of insulin; Z79.899 Other long term (current) drug therapy; Z88.2 Allergy status to sulfonamides; Z88.5 Allergy status to narcotic agent
CPT/HCPCS: 80053; 83690; 84703; 85025; 96361; 96374; 96375; 99284; C9113; J2405; J7030